=== PATIENT | female | born 1950 | race Caucasian/White ===

== ENCOUNTER 2018-05-03 11:52 | Emergency (ER) | payer MEDICARE, OTHER ==
--- NOTE | 2018-05-03 12:27 | ED ---
Extremity Problem HPI - General Chief complaint: Extremity Problem,Nontraumatic Stated complaint: Hip pain Source: patient, RN notes reviewed, old records reviewed Mode of arrival: wheelchair Limitations: no limitations - History of Present Illness Initial comments: This is a 68-year-old female the ER with severe left hip pain. Patient denies injury or trauma causing the hip pain. Patient has no recent travel history no known sick contacts. Denies loss of bowel or bladder. Again denies trauma no rash. Patient does take Motrin at home for pain, occasional Tylenol. Those are not helping currently at this time. Patient states pain is been about a week progressively worsening with severe pain down to her knee. MD Complaint: extremity pain, joint pain -: week(s) Location: left, lower extremity History of Same: Yes -: Yes arthralgia Radiation: distal Severity scale (1-10): 7 Consistency: constant Improves with: nothing Worsens with: nothing Associated Symptoms: denies other symptoms - Related Data Home Medications Medication Instructions Recorded Confirmed ALPRAZolam [Xanax] 0.5 mg PO TID PRN 05/03/18 05/03/18 Butalb/Acetaminophen/Caffeine 1 tab PO Q6H PRN 05/03/18 05/03/18 [Fioricet 50-325-40] Hydroxychloroquine Sulfate 200 mg PO BID 05/03/18 05/03/18 [Plaquenil] Ibuprofen 800 mg PO BID PRN 05/03/18 05/03/18 Omeprazole 20 mg PO DAILY 05/03/18 05/03/18 predniSONE 2.5 mg PO DAILY 05/03/18 05/03/18 Previous Rx's Medication Instructions Recorded Naproxen [Naprosyn] 500 mg PO Q12HR PRN #30 tab 05/03/18 Allergies Allergy/AdvReac Type Severity Reaction Status Date / Time codeine Allergy Anaphylaxis Verified 05/03/18 12:33 hydrocodone [From [place]] Allergy Anaphylaxis Verified 05/03/18 12:33 hydromorphone [From Dilaudid] Allergy Anaphylaxis Verified 05/03/18 12:33 morphine Allergy Anaphylaxis Verified 05/03/18 12:33 Review of Systems ROS Statement: Those systems with pertinent positive or pertinent negative responses have been documented in the HPI. ROS Other: All systems not noted in ROS Statement are negative. Past Medical History Past Medical History: Rheumatoid Arthritis (RA) History of Any Multi-Drug Resistant Organisms: None Reported Past Surgical History: Cholecystectomy, Hysterectomy, Orthopedic Surgery Additional Past Surgical History / Comment(s): right hip replaced Past Psychological History: No Psychological Hx Reported Smoking Status: Current every day smoker Past Alcohol Use History: None Reported Past Drug Use History: None Reported General Exam - General Exam Comments Initial Comments: No neurological deficit found, straight leg raising is negative Limitations: no limitations General appearance: alert, in no apparent distress Head exam: Present: atraumatic, normocephalic, normal inspection Eye exam: Present: normal appearance, PERRL, EOMI. Absent: scleral icterus, conjunctival injection, periorbital swelling ENT exam: Present: normal exam, mucous membranes moist Neck exam: Present: normal inspection. Absent: tenderness, meningismus, lymphadenopathy Respiratory exam: Present: normal lung sounds bilaterally. Absent: respiratory distress, wheezes, rales, rhonchi, stridor Cardiovascular Exam: Present: regular rate, normal rhythm, normal heart sounds. Absent: systolic murmur, diastolic murmur, rubs, gallop, clicks GI/Abdominal exam: Present: soft, normal bowel sounds. Absent: distended, tenderness, guarding, rebound, rigid Extremities exam: Present: normal inspection, full ROM, normal capillary refill. Absent: tenderness, pedal edema, joint swelling, calf tenderness Back exam: Present: normal inspection Neurological exam: Present: alert, oriented X3, CN II-XII intact Psychiatric exam: Present: normal affect, normal mood Skin exam: Present: warm, dry, intact, normal color. Absent: rash Course Vital Signs 05/03/18 12:12 Temperature 97.9 F Pulse Rate 67 Respiratory 16 Rate Blood Pressure 156/83 O2 Sat by Pulse 98 Oximetry - Reevaluation(s) Reevaluation #1: 05/03/18 14:41 Medical record is reviewed Reevaluation #2: 05/03/18 14:41 Patient has improved symptoms mildly able to ambulate Medical Decision Making - Medical Decision Making 68 female the ER with significant left hip pain left back pain. Radiation down left leg, CT does show degenerative disc disease but no acute disease. Patient will follow-up with outpatient orthopedics - Radiology Data Radiology results: report reviewed (X-ray left hip, CT left hip and lumbosacral spine shows degenerative disc disease no acute disease), image reviewed Disposition Clinical Impression: Right hip pain Disposition: HOME SELF-CARE Condition: Good Instructions: Osteoarthritis (ED) Prescriptions: Naproxen [Naprosyn] 500 mg PO Q12HR PRN #30 tab PRN Reason: Pain Is patient prescribed a controlled substance at d/c from ED?: No Referrals: Javi Barros DO [Primary Care Provider] - 1-2 days
[2018-05-03] MEDS ORDERED: KETOROLAC 60 MG/2 ML VIAL IM STA (12:28)
[2018-05-03] MEDS ORDERED: traMADol 50 MG STARTER PACK 3 TAB BTL PO STA (12:28)
[2018-05-03] MEDS ORDERED: traMADol 50 MG TAB PO STA (12:28)
--- NOTE | 2018-05-03 13:07 | XR ---
EXAMINATION TYPE: XR Hip Complete LT DATE OF EXAM: 05/03/2018 CLINICAL HISTORY: pain TECHNIQUE: AP and frogleg views of the left hip are obtained. COMPARISON: None. FINDINGS: There is no acute fracture/dislocation evident. Total right hip is in place. The overlying soft tissue appears unremarkable. IMPRESSION: 1. There is no acute fracture or dislocation. ICD 10 NO FRACTURE, INITIAL EVALUATION
[2018-05-03] MEDS ORDERED: DEXAMETHASONE 4 MG TAB PO STA (14:23)
[2018-05-03] MEDS ORDERED: RX INFO: IV CONTRAST WAS GIVEN 1 EACH MISC MISCELLANE PRN (14:23)
--- NOTE | 2018-05-03 15:13 | CT ---
EXAMINATION TYPE: CT lumbar spine wo con DATE OF EXAM: 05/03/2018 COMPARISON: None HISTORY: Left hip pain today, no known injury. CT DLP: [address] of the lumbar spine was performed. Bone and soft tissue window settings are submitted as well as coronal and sagittal reconstructions. L1-L2: Normal disc space height. No disc herniation protrusion or central stenosis. No facet joint arthropathy. No evidence for foraminal encroachment. L2-L3: Severe disc desiccation vacuum disc noted. Grade 1 retrolisthesis of L2 on L3 measuring 3.8 mm . Posterior disc bulge without musa disc herniation or protrusion. No evidence for central stenosis. Facet joint arthropathy resulting in moderate bilateral foraminal encroachment left greater than rig ht. L3-L4: Moderate disc space narrowing. Circumferential disc bulge with mild effacement ventral thecal sac. Possible bilateral lateral recess stenosis. Correlate clinically. No evidence for central stenos is. Facet joint arthropathy. No foraminal encroachment. L4-L5: Vacuum disc compatible with severe disc desiccation. Moderate circumferential disc bulge great est posteriorly with bilateral lateral recess stenosis. No definite herniation or central stenosis. B ilateral foraminal encroachment with facet joint arthropathy. L5-S1: Vacuum disc compatible with severe disc desiccation. Posterior disc bulge with encapsulating spur resulting in hard disc. Mild effacement ventral thecal sac. No evidence for central stenosis. B ilateral foraminal encroachment noted. No paraspinal masses are identified. Lumbar segments are free if fracture. IMPRESSION: 1. Severe multilevel degenerative disc disease with varying degrees of disc bulging and lateral reces s stenosis and foraminal encroachment as discussed above. 2. No compression fractures identified.
--- NOTE | 2018-05-03 15:23 | CT ---
EXAMINATION TYPE: CT pelvis wo con, CT hip LT wo con DATE OF EXAM: 05/03/2018 COMPARISON: Plain films from the same day HISTORY: Left hip pain today, no known injury. CT DLP: 846 mGycm Automated exposure control for dose reduction was used. Bone and soft tissue window settings are subm itted. CT was performed of the pelvis and left hip. Axial sagittal and coronal images are reviewed. FINDINGS: There is no displaced or impacted fracture of the pelvis or left hip. Left hip joint space is well-pr eserved. Right total hip prosthesis is well seated. No soft tissue masses present. No pelvic masses s een. IMPRESSION: NO EVIDENCE FOR A DISPLACED OR IMPACTED FRACTURE AT THIS TIME.
[2018-05-03 15:59] VITALS: BP 174/77; PULSE 63; RESP 18; TEMP 98.1
== END 2018-05-03 15:48 | disposition home or self-care (01) ==
LOC: EC 11:52
DX: M25.552 Pain in left hip (principal); M51.37 Other intervertebral disc degeneration, lumbosacral region; M06.9 Rheumatoid arthritis, unspecified; F17.200 Nicotine dependence, unspecified, uncomplicated; Z79.52 Long term (current) use of systemic steroids; Z79.899 Other long term (current) drug therapy; Z88.5 Allergy status to narcotic agent; Z96.641 Presence of right artificial hip joint
CPT/HCPCS: 73502; 72192; 72131; 73700; 99284; 96372; J8540; J1885

== ENCOUNTER → 2018-05-03 | Outpatient (CLI) | payer MEDICARE, OTHER ==
--- NOTE | 2018-05-03 11:57 | XR ---
EXAMINATION TYPE: XR lumbar spine 2 or 3V DATE OF EXAM: 05/03/2018 CLINICAL HISTORY: pain TECHNIQUE: Three views of the lumbar spine are submitted. COMPARISON: None. FINDINGS: There are 5 lumbar type vertebral bodies identified. The lumbar spine shows satisfactory alignment w ithout evidence of acute fracture or dislocation. Vertebral body heights are within normal limits. Severe degenerative disc space narrowing at L2-3 and L5-S1 with vacuum disc. Endplate sclerosis and v entral spondylosis noted. Severe facet joint arthropathy. The overlying soft tissue appears unremark able. IMPRESSION: No acute fracture or dislocation is seen in the lumbar spine. ICD 10 NO FRACTURE, INITIAL EVALUATION
--- NOTE | 2018-05-03 11:59 | XR ---
EXAMINATION TYPE: XR pelvis AP view DATE OF EXAM: 05/03/2018 CLINICAL HISTORY: pain TECHNIQUE: Single view the pelvis is submitted. FINDINGS: No evidence for fracture, dislocation or bony lesion. Total right hip arthroplasty is in p lace. Left hip joint space is well-preserved. SI joints appear symmetric. IMPRESSION: 1. No acute fracture or dislocation seen. ICD 10 NO FRACTURE, INITIAL EVALUATION
--- NOTE | 2018-05-03 12:01 | XR ---
EXAMINATION TYPE: XR cervical spine limited DATE OF EXAM: 05/03/2018 CLINICAL HISTORY: pain TECHNIQUE: 3 views of the cervical spine are submitted. COMPARISON: None. FINDINGS: Moderate to severe degenerative narrowing noted at C5-6 and C6-7. [id number] narrowin g at C4-5. Ventral and dorsal spondylosis identified. Grade 1 anterolisthesis of C4 on C5 measuring 2 mm. No evidence for compression fracture. IMPRESSION: 1. Degenerative changes as discussed above.
== END | disposition home or self-care (01) ==
LOC: RADXRMAIN 11:19
PROVIDERS: ATTEND Chiropractor
DX: M99.71 Connective tissue and disc stenosis of intervertebral foramina of cervical region (principal); M47.812 Spondylosis without myelopathy or radiculopathy, cervical region; M43.12 Spondylolisthesis, cervical region; M99.03 Segmental and somatic dysfunction of lumbar region; M99.01 Segmental and somatic dysfunction of cervical region
CPT/HCPCS: 72040; 72100; 72170

== ENCOUNTER → 2019-07-04 | Outpatient (CLI) | payer MEDICARE, OTHER ==
--- NOTE | 2019-07-04 13:02 | CT ---
EXAMINATION TYPE: CT foot RT wo con DATE OF EXAM: 07/04/2019 COMPARISON: None HISTORY: 69-year-old female with right foot pain after fall 2.5 weeks ago. TECHNIQUE: Contiguous axial scanning of the right foot without IV contrast. Coronal and sagittal kervin nstructions performed. 3-D reconstructions generated on a dedicated independent workstation. CT DLP: 229.2 mGycm Automated exposure control for dose reduction was used. FINDINGS: Type II accessory navicular. Multipartite os peroneum. Old healed fracture deformity fifth metatarsal shaft. Lateral sided soft tissue swelling with minimal irregularity at the tip of the lateral malleolus. Subtalar joint is aligned. Smooth delineation to the Achilles tendon. Otherwise, no acute fracture, subluxation, or dislocation is seen. IMPRESSION: 1. SOME LATERAL MALLEOLAR SOFT TISSUE SWELLING. SLIGHT BONY IRREGULARITY AT THE INFERIOR TIP OF THE L ATERAL MALLEOLUS COULD REPRESENT A TINY NONDISPLACED FRACTURE. CORRELATE FOR ANY PINPOINT TENDERNESS HERE. 2. OLD HEALED FRACTURE DEFORMITY FIFTH METATARSAL SHAFT. NO ADDITIONAL ACUTE OSSEOUS ABNORMALITY SEEN .
== END | disposition home or self-care (01) ==
LOC: RADCTMAIN 11:33
PROVIDERS: ATTEND Orthopaedic Surgery
DX: M79.89 Other specified soft tissue disorders (principal); M89.8X6 Other specified disorders of bone, lower leg; M06.9 Rheumatoid arthritis, unspecified; E55.9 Vitamin D deficiency, unspecified; S92.311A Displaced fracture of first metatarsal bone, right foot, initial encounter for closed fracture
CPT/HCPCS: 36415; 82306

== ENCOUNTER 2019-07-18 11:08 | Observation (INO) | payer MEDICARE, OTHER ==
--- NOTE | 2019-07-18 12:13 | ED ---
General Adult HPI - General Chief complaint: Arrhythmia/Palpitations Stated complaint: LARON/palpitations Time Seen by Provider: 07/18/19 11:10 Source: patient, RN notes reviewed, old records reviewed Mode of arrival: ambulatory Limitations: no limitations - History of Present Illness Initial comments: This is a 69-year-old female presents emergency Department who states that she was having palpitations and some heaviness on her chest for the last week. Patient states that she's coming to the emergency department the palpitations. Shortness of breath which she was also having has stopped and she does not feel any heaviness. Patient denies any diabetes high blood pressure high cholesterol. Patient states that her blood pressure has been high over this past week but prior to that it never was a she's on any medications for. Patient states she's had no swelling to legs or calf tenderness. Patient denies any abdominal pain. Patient denies any cough fever chills. Patient denies any lightheadedness dizziness. Patient has a headache patient denies numbness weakness. - Related Data Home Medications Medication Instructions Recorded Confirmed ALPRAZolam [Xanax] 0.5 mg PO TID PRN 05/03/18 05/03/18 Butalb/Acetaminophen/Caffeine 1 tab PO Q6H PRN 05/03/18 05/03/18 [Fioricet 50-325-40] Hydroxychloroquine Sulfate 200 mg PO BID 05/03/18 05/03/18 [Plaquenil] Ibuprofen 800 mg PO BID PRN 05/03/18 05/03/18 Omeprazole 20 mg PO DAILY 05/03/18 05/03/18 predniSONE 2.5 mg PO DAILY 05/03/18 05/03/18 Previous Rx's Medication Instructions Recorded Naproxen [Naprosyn] 500 mg PO Q12HR PRN #30 tab 05/03/18 Allergies Allergy/AdvReac Type Severity Reaction Status Date / Time codeine Allergy Anaphylaxis Verified 05/03/18 12:33 hydrocodone [From [place]] Allergy Anaphylaxis Verified 05/03/18 12:33 hydromorphone [From Dilaudid] Allergy Anaphylaxis Verified 05/03/18 12:33 morphine Allergy Anaphylaxis Verified 05/03/18 12:33 tramadol Allergy Itching Verified 07/18/19 11:14 Review of Systems ROS Statement: Those systems with pertinent positive or pertinent negative responses have been documented in the HPI. ROS Other: All systems not noted in ROS Statement are negative. Past Medical History Past Medical History: Rheumatoid Arthritis (RA) History of Any Multi-Drug Resistant Organisms: None Reported Past Surgical History: Cholecystectomy, Hysterectomy, Orthopedic Surgery Additional Past Surgical History / Comment(s): right hip replaced Past Psychological History: No Psychological Hx Reported Smoking Status: Former smoker Past Alcohol Use History: None Reported Past Drug Use History: None Reported General Exam - General Exam Comments Initial Comments: GENERAL: Patient is well-developed and well-nourished. Patient is nontoxic and well- hydrated and is in no acute distress. ENT: Neck is soft and supple. No significant lymphadenopathy is noted. Oropharynx is clear. Moist mucous membranes. Neck has full range of motion without eliciting any pain. EYES: The sclera were anicteric and conjunctiva were pink and moist. Extraocular movements were intact and pupils were equal round and reactive to light. Eyelids were unremarkable. PULMONARY: Unlabored respirations. Good breath sounds bilaterally. No audible rales rhonchi or wheezing was noted. CARDIOVASCULAR: There is a regular rate and rhythm without any murmurs gallops or rubs. ABDOMEN: Soft and nontender with normal bowel sounds. SKIN: Skin is clear with no lesions or rashes and otherwise unremarkable. NEUROLOGIC: Patient is alert and oriented x3. Cranial nerves II through XII are grossly intact. Motor and sensory are also intact. Normal speech, volume and content. Symmetrical smile. MUSCULOSKELETAL: Normal extremities with adequate strength and full range of motion. No lower extremity swelling or edema. No calf tenderness. LYMPHATICS: No significant lymphadenopathy is noted PSYCHIATRIC: Normal psychiatric evaluation. Limitations: no limitations Course Vital Signs 07/18/19 07/18/19 07/18/19 11:11 11:30 12:00 Temperature 98.5 F Pulse Rate 94 73 70 Respiratory 18 14 21 Rate Blood Pressure 189/69 152/80 160/84 O2 Sat by Pulse 98 97 98 Oximetry 07/18/19 12:30 Temperature Pulse Rate 61 Respiratory 21 Rate Blood Pressure 155/74 O2 Sat by Pulse 98 Oximetry Medical Decision Making - Medical Decision Making Patient stated that she was pain-free so I got her up and walk down the hallway and again she stated that sensation in her chest came back and she was hooked up to the monitor and there was no arrhythmia or PVCs or PACs noted but she was still having that weird sensation in the left side of her chest. EKG shows normal sinus rhythm at 82 bpm MS interval 150 QRS is 72 QT interval 412 QTC is 481. Patient's EKG shows no ST segment elevation or depression. Chest x-ray shows no acute abnormality. I spoke with Dr. Christianson agreed to admit the patient admitted the patient wrote admitting orders. I counseled cardiology. - Lab Data Result diagrams: 07/18/19 11:24 07/18/19 11:24 Lab Results 07/18/19 07/18/19 07/18/19 Range/Units 11:24 11:24 11:24 WBC 7.1 (3.8-10.6) k/uL RBC 4.29 (3.80-5.40) m/uL Hgb 12.9 (11.4-16.0) gm/dL Hct 40.0 (34.0-46.0) % MCV 93.3 (80.0-100.0) fL MCH 30.0 (25.0-35.0) pg MCHC 32.2 (31.0-37.0) g/dL RDW 12.9 (11.5-15.5) % Plt Count 231 (150-450) k/uL Neutrophils % 53 % Lymphocytes % 32 % Monocytes % 6 % Eosinophils % 4 % Basophils % 2 % Neutrophils # 3.8 (1.3-7.7) k/uL Lymphocytes # 2.2 (1.0-4.8) k/uL Monocytes # 0.4 (0-1.0) k/uL Eosinophils # 0.3 (0-0.7) k/uL Basophils # 0.2 (0-0.2) k/uL PT 10.1 (9.0-12.0) sec INR 1.0 (<1.2) APTT 28.2 (22.0-30.0) sec Sodium 140 (137-145) mmol/L Potassium 3.9 (3.5-5.1) mmol/L Chloride 112 H (98-107) mmol/L Carbon Dioxide 19 L (22-30) mmol/L Anion Gap 9 mmol/L BUN 17 (7-17) mg/dL Creatinine 0.92 (0.52-1.04) mg/dL Est GFR (CKD-EPI)AfAm 75 (>60 ml/min/1.73 sqM) Est GFR (CKD-EPI)NonAf 65 (>60 ml/min/1.73 sqM) Glucose 106 H (74-99) mg/dL Calcium 9.0 (8.4-10.2) mg/dL Magnesium 1.8 (1.6-2.3) mg/dL Total Bilirubin 0.5 (0.2-1.3) mg/dL AST 28 (14-36) U/L ALT 17 (4-34) U/L Alkaline Phosphatase 104 (38-126) U/L Troponin I (0.000-0.034) ng/mL Total Protein 7.7 (6.3-8.2) g/dL Albumin 3.9 (3.5-5.0) g/dL TSH 2.590 (0.465-4.680) mIU/L 07/18/19 Range/Units 11:24 WBC (3.8-10.6) k/uL RBC (3.80-5.40) m/uL Hgb (11.4-16.0) gm/dL Hct (34.0-46.0) % MCV (80.0-100.0) fL MCH (25.0-35.0) pg MCHC (31.0-37.0) g/dL RDW (11.5-15.5) % Plt Count (150-450) k/uL Neutrophils % % Lymphocytes % % Monocytes % % Eosinophils % % Basophils % % Neutrophils # (1.3-7.7) k/uL Lymphocytes # (1.0-4.8) k/uL Monocytes # (0-1.0) k/uL Eosinophils # (0-0.7) k/uL Basophils # (0-0.2) k/uL PT (9.0-12.0) sec INR (<1.2) APTT (22.0-30.0) sec Sodium (137-145) mmol/L Potassium (3.5-5.1) mmol/L Chloride (98-107) mmol/L Carbon Dioxide (22-30) mmol/L Anion Gap mmol/L BUN (7-17) mg/dL Creatinine (0.52-1.04) mg/dL Est GFR (CKD-EPI)AfAm (>60 ml/min/1.73 sqM) Est GFR (CKD-EPI)NonAf (>60 ml/min/1.73 sqM) Glucose (74-99) mg/dL Calcium (8.4-10.2) mg/dL Magnesium (1.6-2.3) mg/dL Total Bilirubin (0.2-1.3) mg/dL AST (14-36) U/L ALT (4-34) U/L Alkaline Phosphatase (38-126) U/L Troponin I <0.012 (0.000-0.034) ng/mL Total Protein (6.3-8.2) g/dL Albumin (3.5-5.0) g/dL TSH (0.465-4.680) mIU/L Disposition Clinical Impression: Chest pain Disposition: ADMITTED IP TO THIS HOSP Referrals: Javi Barros DO [Primary Care Provider] - 1-2 days Time of Disposition: 13:19
[2019-07-18 12:17] LABS: Basophils # (A) 0.2 k/uL (0-0.2); Basophils % (A) 2 %; Eosinophils # (A) 0.3 k/uL (0-0.7); Eosinophils % (A) 4 %; HGB 12.9 gm/dL (11.4-16.0); Lymphocytes # (A) 2.2 k/uL (1.0-4.8); Lymphocytes % (A) 32 %; MCHC 32.2 g/dL (31.0-37.0); MCV 93.3 fL (80.0-100.0); Mean Platelet Volume 9.4; Monocytes # (A) 0.4 k/uL (0-1.0); Monocytes % (A) 6 %; Neutrophils # (A) 3.8 k/uL (1.3-7.7); Neutrophils % (A) 53 %; Platelet Count 231 k/uL (150-450); RBC 4.29 m/uL (3.80-5.40); RDW 12.9 % (11.5-15.5); WBC 7.1 k/uL (3.8-10.6)
[2019-07-18 12:21] LABS: Partial Thromboplastin Time 28.2 sec (22.0-30.0); Prothrombin Time 10.1 sec (9.0-12.0)
[2019-07-18 12:25] LABS: Albumin 3.9 g/dL (3.5-5.0); Magnesium 1.8 mg/dL (1.6-2.3); Potassium 3.9 mmol/L (3.5-5.1); Total Bilirubin 0.5 mg/dL (0.2-1.3); Total Protein 7.7 g/dL (6.3-8.2)
--- NOTE | 2019-07-18 12:47 | XR ---
EXAMINATION TYPE: XR chest 2V DATE OF EXAM: 07/18/2019 COMPARISON: 02/12/2012 HISTORY: Shortness of breath TECHNIQUE: Frontal and lateral views of the chest are obtained. FINDINGS: Scattered senescent parenchymal changes noted. Hyperinflation compatible with COPD. No evidence for infiltrate. No evidence for atelectasis. Heart size is stable. Mediastinal structures are stable and grossly unremarkable. No evidence for hilar prominence. Degenerative changes dorsal spine. IMPRESSION: 1. No evidence for acute pulmonary disease.
[2019-07-18] MEDS ORDERED: NITROGLYCERIN SL TABS 0.4 MG TAB SUBLINGUAL PRN (13:20)
[2019-07-18] MEDS ORDERED: BACLOFEN 10 MG TAB PO PRN (14:26)
--- NOTE | 2019-07-18 14:27 | P.HPIM ---
History of Present Illness H&P Date: 07/18/19 The patient is a 69-year-old female with a PMH of rheumatoid arthritis, tobacco abuse (quit 1 month ago) and osteoarthritis who presented to the ED with complaints of substernal chest discomfort and associated palpitations. Patient reports that her symptoms started roughly a week ago when she suddenly developed this substernal chest tightness, constant, worsened with chest wall movement along with exertion, with associated palpitations, unable to quantify, and nonradiating. She reported that the discomfort improved somewhat after she received nitroglycerin in the emergency room. She denied associated shortness of breath, diaphoresis, nausea, vomiting, or dizziness. She never had such sym ptoms the past. She denied heart-burn, fever, chills, abdominal pain, diarrhea, or cough. She denied tenderness of her chest wall, recent heavy lifting, or increased amount of stress in her life. The patient underwent an extensive outpatient emergency room with EKG showing a normal sinus rhythm at [address]/T-wave changes noted. Chest x-ray revealed no acute abnormalities. Laboratory evaluation revealed a troponin of less than 0.012, WBC count of 7.1, hemoglobin 12.9, platelets 231, sodium 140, potassium 3.9, BUN 17, creatinine 0.92. The patient is being admitted to the medicine service for further management of chest pain. Review of Systems Pertinent positives and negatives as discussed in HPI, a complete review of systems was performed and all other systems are negative. Past Medical History Past Medical History: Rheumatoid Arthritis (RA) History of Any Multi-Drug Resistant Organisms: None Reported Past Surgical History: Cholecystectomy, Hysterectomy, Orthopedic Surgery Additional Past Surgical History / Comment(s): right hip replaced Past Psychological History: No Psychological Hx Reported Smoking Status: Former smoker Past Alcohol Use History: None Reported Past Drug Use History: None Reported - Past Family History Mother Family Medical History: Osteoarthritis (OA), Rheumatoid Arthritis (RA) Father History Unknown: Yes Additional Family Medical History / Comment(s): not present Medications and Allergies Home Medications Medication Instructions Recorded Confirmed Type ALPRAZolam [Xanax] 0.5 mg PO TID PRN 05/03/18 07/18/19 History Butalb/Acetaminophen/Caffeine 1 tab PO Q6H PRN 05/03/18 07/18/19 History [Fioricet 50-325-40] Hydroxychloroquine Sulfate 200 mg PO DAILY 05/03/18 07/18/19 History [Plaquenil] Ibuprofen 800 mg PO Q8H PRN 05/03/18 07/18/19 History Omeprazole 20 mg PO DAILY 05/03/18 07/18/19 History Alendronate Sodium [Fosamax] 70 mg PO WE 07/18/19 07/18/19 History Baclofen [Lioresal] 10 mg PO DAILY PRN 07/18/19 07/18/19 History Cetirizine HCl [Zyrtec] 10 mg PO DAILY 07/18/19 07/18/19 History Etanercept [Enbrel] 50 mg SQ MO 07/18/19 07/18/19 History Fluocinolone Acetonide Oil 4 drops BOTH EARS BID PRN 07/18/19 07/18/19 History [Fluocinolone Acetonide Oil (Otic)] Furosemide [Lasix] 20 mg PO DAILY 07/18/19 07/18/19 History Leflunomide 20 mg PO DAILY 07/18/19 07/18/19 History Pilocarpine [Salagen] 5 mg PO DAILY 07/18/19 07/18/19 History Polyethylene Glycol 3350 [Miralax] 17 gm PO DAILY PRN 07/18/19 07/18/19 History Varenicline Tartrate [Chantix 1 mg PO BID 07/18/19 07/18/19 History Continuing Pack] diphenhydrAMINE [Benadryl] 25 mg PO DAILY 07/18/19 07/18/19 History Allergies Allergy/AdvReac Type Severity Reaction Status Date / Time codeine Allergy Anaphylaxis Verified 07/18/19 14:09 hydrocodone [From [place]] Allergy Anaphylaxis Verified 07/18/19 14:09 hydromorphone [From Dilaudid] Allergy Anaphylaxis Verified 07/18/19 14:09 morphine Allergy Anaphylaxis Verified 07/18/19 14:09 tramadol Allergy Itching Verified 07/18/19 14:09 Physical Exam Vitals: Vital Signs Temp Pulse Resp BP Pulse Ox 07/18/19 12:30 61 21 155/74 98 07/18/19 12:00 70 21 160/84 98 07/18/19 11:30 73 14 152/80 97 07/18/19 11:11 98.5 F 94 18 189/69 98 Intake and Output 07/17/19 07/18/19 07/18/19 22:59 06:59 14:59 Other: Weight 71.214 kg General: non toxic, no distress, appears at stated age, normal weight Derm: no unusual rashes/lesions no unusual ecchymoses, warm, dry Head: atraumatic, normocephalic, symmetric Eyes: EOMI, no lid lag, anicteric sclera, pupils equal round reactive to light ENT: Nose and ears atraumatic, no thrush, no pharyngeal erythema Neck: No thyromegaly, no cervical lymphadenopathy, trachea midline, supple Mouth: no lip lesion, mucus membranes moist Cardiovascular: S1S2 reg, no murmur, positive posterior tibial pulse bilateral, no edema, capillary refill less than 2 seconds Lungs: CTA bilateral, no rhonchi, no rales , no accessory muscle use Abdominal: soft, nontender to palpation, no guarding, no appreciable organomegaly, normal bowel sounds Ext: no gross muscle atrophy, muscle strength 5 out of 5 in all 4 extremities grossly, no contractures, Neuro: CN II-XI grossly intact, light touch intact all 4 extremities, finger to nose within normal limits, Psych: Alert, oriented, appropriate affect Results CBC & Chem 7: 07/18/19 11:24 07/18/19 11:24 Labs: Abnormal Lab Results - Last 24 Hours (Table) 07/18/19 Range/Units 11:24 Chloride 112 H (98-107) mmol/L Carbon Dioxide 19 L (22-30) mmol/L Glucose 106 H (74-99) mg/dL Assessment and Plan Plan: Chest pain -Cardiology evaluation -Cardiac monitoring -Trend troponin and EKG -Continue with aspirin and nitroglycerin when necessary Elevated BP, without diagnoses of HTN -Will start patient on single agent for now Chronic conditions: Rheumatoid arthritis, osteoarthritis -Continue with home meds DVT prophylaxis -Heparin The patient is admitted with an anticipated less than 2 midnight stay for e valuation of chest pain CODE STATUS: Full Code Discussed with: Patient Anticipated discharge date: 1-[address]: Home A total of 40 minutes was spent on the care of this complex patient more than 50% of the time was spent in counseling and care coordination.
[2019-07-18] MEDS: NITROGLYCERIN OINT 1 INCH/GM PACKET TOPICAL SCH ×2 (18:01→23:41)
[2019-07-18] MEDS: HEPARIN SODIUM,PORCINE 5,000 UNIT/ML 1 ML VIAL SQ SCH ×2 (18:02→23:37)
[2019-07-18] MEDS: ALPRAZolam 0.5 MG TAB PO PRN ×2 (18:14→23:38)
[2019-07-18] MEDS ORDERED: POLYETHYLENE GLYCOL 3350 17 GM POWD.PACK PO PRN (18:41)
[2019-07-18] MEDS: BUTALB/APAP/CAFF 50-325-40MG TAB PO PRN (22:42)
[2019-07-19] MEDS: PANTOPRAZOLE 40 MG TABLET PO SCH (06:25)
[2019-07-19] MEDS: NITROGLYCERIN OINT 1 INCH/GM PACKET TOPICAL SCH ×4 (06:26→23:10)
[2019-07-19 06:31] LABS: Cholesterol 153 mg/dL (<200); HDL Cholesterol 59 mg/dL (40-60); LDL Cholesterol,Calculated 78 mg/dL (0-99); Triglycerides 82 mg/dL (<150)
[2019-07-19] MEDS: LEFLUNOMIDE 20 MG TAB PO SCH (07:42)
[2019-07-19] MEDS: LORATADINE 10 MG TAB PO SCH (07:42)
[2019-07-19] MEDS: PILOCARPINE 5 MG TAB PO SCH (07:42)
[2019-07-19] MEDS: HEPARIN SODIUM,PORCINE 5,000 UNIT/ML 1 ML VIAL SQ SCH ×3 (07:42→23:10)
[2019-07-19] MEDS: HYDROXYCHLOROQUINE SULFATE 200 MG TAB PO SCH (07:43)
[2019-07-19] MEDS: FUROSEMIDE 20 MG TAB PO SCH (07:43)
[2019-07-19] MEDS: diphenhydrAMINE 25 MG CAP PO SCH (07:43)
[2019-07-19] MEDS: amLODIPine 10 MG TAB PO SCH (08:50)
[2019-07-19] MEDS ORDERED: ACETAMINOPHEN TAB 325 MG TAB PO PRN (08:57)
[2019-07-19] MEDS ORDERED: ASPIRIN 325 MG TAB PO SCH (09:00)
[2019-07-19] MEDS: BUTALB/APAP/CAFF 50-325-40MG TAB PO PRN ×3 (10:30→23:13)
--- NOTE | 2019-07-19 15:27 | P.CRDCN ---
History of Present Illness History of present illness: This is Mildred Valdes PA-C dictating a consult on this patient The patient was interviewed and examined by me as well as by Dr. Sun Case discussed with Dr. Sun and he agrees with the plan of care IMPRESSION / ASSESSMENT: Atypical chest discomfort associated with fluttering in her chest, troponins negative 3, no acute changes on EKG Hypertension, blood pressure control improving progressive dyspnea on exertion for the last week Previous echo showing moderate AR and possible bicuspid aortic valve Former smoker, [id number] history, quit one year ago Dyslipidemia, ASCVD ten-year risk score 8.3% PLAN: Obtain 2-D echo and Doppler study to assess cardiac structure and function Agree with starting amlodipine, continue monitoring blood pressure check hemoglobin A1C for risk factor stratefication Start atorvastatin 20 mg daily HPI Patient is a 69-year-old female with a past medical history of rheumatoid arthritis who presented with complaints of chest discomfort and palpitations. 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 Patient states her symp toms started with a headache. She states she gets frequent headaches but this one was worse than she has ever experienced. She then felt a fluttering in her chest with associated dizziness. No syncope. She also notes that for the last week she has been more short of breath on exertion. Denies chest pain on exertion. She checked her blood pressure at home and it was elevated and this was a new finding for her. She has no known diagnosis of hypertension. She presented to the emergency department for further evaluation. Upon arrival her blood pressure was 189/69, pulse was 94, oxygen saturation was 98%. Chest x-ray shows no acute process. EKG shows sinus rhythm with early repolarization abnormality in the inferior leads, no acute ST or T-wave changes. Cardiac enzymes have been negative. She has been started on amlodipine and her blood pressure has improved. Patient seen and examined resting comfortably in bed. It continues to have intermittent fluttering in her chest. She states that when she gets up to use the bathroom she continues to have shortness of breath on exertion. No dizziness or syncope. She denies history of hypertension or diabetes She is a former smoker, smoked one pack a day for 50 years, quit one year ago Denies alcohol ROS: No fevers, chills or rigors, no cough, phlegm or expectoration, no nausea, vomiting, positive for diarrhea, no hematuria, dysuria, no musculoskeletal complaints, no strokes or seizures, no skin lesions. EXAMINATION: Patient is afebrile, pulse in the 70s, respirations 20, blood pressure in the 130s over 60s, Patient seen and examined resting in bed, in no acute distress Lungs mildly diminished at the bases Heart is regular, soft systolic murmur audible No elevated JVD No lower extremity edema REVIEW OF LABS, ECG & MEDICAL DATA WBC 7.1, hemoglobin 12.9, platelets 231, potassium 3.9, BUN 17, creatinine 0.93 LDL 78 TSH within normal limits Troponin negative 3 Echocardiogram in 2013 showed EF 55-60%, moderate aortic regurgitation, cannot exclude possible bicuspid aortic valve, mild MR Past Medical History Past Medical History: Rheumatoid Arthritis (RA) History of Any Multi-Drug Resistant Organisms: None Reported Past Surgical History: Cholecystectomy, Hysterectomy, Orthopedic Surgery Additional Past Surgical History / Comment(s): right hip replaced Past Anesthesia/Blood Transfusion Reactions: No Reported Reaction Past Psychological History: No Psychological Hx Reported Smoking Status: Former smoker Past Alcohol Use History: None Reported Past Drug Use History: None Reported - Past Family History Mother Family Medical History: Osteoarthritis (OA), Rheumatoid Arthritis (RA) Father History Unknown: Yes Additional Family Medical History / Comment(s): not present Medications and Allergies Home Medications Medication Instructions Recorded Confirmed Type ALPRAZolam [Xanax] 0.5 mg PO TID PRN 05/03/18 07/18/19 History Butalb/Acetaminophen/Caffeine 1 tab PO Q6H PRN 05/03/18 07/18/19 History [Fioricet 50-325-40] Hydroxychloroquine Sulfate 200 mg PO DAILY 05/03/18 07/18/19 History [Plaquenil] Ibuprofen 800 mg PO Q8H PRN 05/03/18 07/18/19 History Omeprazole 20 mg PO DAILY 05/03/18 07/18/19 History Alendronate Sodium [Fosamax] 70 mg PO WE 07/18/19 07/18/19 History Baclofen [Lioresal] 10 mg PO DAILY PRN 07/18/19 07/18/19 History Cetirizine HCl [Zyrtec] 10 mg PO DAILY 07/18/19 07/18/19 History Etanercept [Enbrel] 50 mg SQ MO 07/18/19 07/18/19 History Fluocinolone Acetonide Oil 4 drops BOTH EARS BID PRN 07/18/19 07/18/19 History [Fluocinolone Acetonide Oil (Otic)] Furosemide [Lasix] 20 mg PO DAILY 07/18/19 07/18/19 History Leflunomide 20 mg PO DAILY 07/18/19 07/18/19 History Pilocarpine [Salagen] 5 mg PO DAILY 07/18/19 07/18/19 History Polyethylene Glycol 3350 [Miralax] 17 gm PO DAILY PRN 07/18/19 07/18/19 History Varenicline Tartrate [Chantix 1 mg PO BID 07/18/19 07/18/19 History Continuing Pack] diphenhydrAMINE [Benadryl] 25 mg PO DAILY 07/18/19 07/18/19 History Allergies Allergy/AdvReac Type Severity Reaction Status Date / Time codeine Allergy Anaphylaxis Verified 07/18/19 14:09 hydrocodone [From [place]] Allergy Anaphylaxis Verified 07/18/19 14:09 hydromorphone [From Dilaudid] Allergy Anaphylaxis Verified 07/18/19 14:09 morphine Allergy Anaphylaxis Verified 07/18/19 14:09 tramadol Allergy Itching Verified 07/18/19 14:09 Physical Exam Vitals: Vital Signs Temp Pulse Resp BP Pulse Ox 07/19/19 12:00 70 20 165/77 97 07/19/19 10:56 78 144/78 07/19/19 10:49 72 20 132/63 96 07/19/19 10:47 132/63 07/19/19 10:45 70 154/68 07/19/19 07:55 97.4 F L 78 20 176/76 96 07/19/19 04:00 98.2 F 69 16 121/74 98 07/19/19 00:00 97.7 F 71 18 148/73 96 07/18/19 20:00 97.9 F 75 18 182/73 99 Intake and Output 07/19/19 07/19/19 07/19/19 06:59 14:59 22:59 Intake Total 240 120 Balance 240 120 Intake: Oral 240 120 Other: # Voids 2 Weight 72.1 kg Results 07/18/19 11:24 07/18/19 11:24 Cardiac Enzymes 07/18/19 07/18/19 Range/Units 18:02 23:31 Troponin I <0.012 <0.012 (0.000-0.034) ng/mL Lipids 07/19/19 Range/Units 05:55 Triglycerides 82 (<150) mg/dL Cholesterol 153 (<200) mg/dL HDL Cholesterol 59 (40-60) mg/dL Current Medications Generic Name Dose Route Start Last Admin Trade Name Freq PRN Reason Stop Dose Admin Acetaminophen 650 mg 07/19/19 08:57 Tylenol Tab PO Q4HR PRN Fever and/ or Mild Pain Acetaminophen/Butalbital/Caffeine 1 each 07/18/19 18:41 07/19/19 10:30 Fioricet 50-325-40 PO 1 each Q6H PRN Administration Headache Alprazolam 0.5 mg 07/18/19 14:26 07/18/19 23:38 Xanax PO 0.5 mg TID PRN Administration Anxiety Amlodipine Besylate 10 mg 07/19/19 09:00 07/19/19 08:50 Norvasc PO 10 mg DAILY [facility] Administration Aspirin 81 mg 07/20/19 09:00 Aspirin PO DAILY [facility] Atorvastatin Calcium 20 mg 07/19/19 21:00 Lipitor PO HS [facility] Baclofen 10 mg 07/18/19 14:26 Lioresal PO DAILY PRN Spasms Diphenhydramine HCl 25 mg 07/19/19 09:00 07/19/19 07:43 Benadryl PO 25 mg DAILY [facility] Administration Furosemide 20 mg 07/19/19 09:00 07/19/19 07:43 Lasix PO Not Given DAILY [facility] Heparin Sodium (Porcine) 5,000 unit 07/18/19 16:00 07/19/19 07:42 Heparin SQ 5,000 unit Q8HR [facility] Administration Hydroxychloroquine Sulfate 200 mg 07/19/19 09:00 07/19/19 07:43 Plaquenil PO 200 mg DAILY [facility] Administration Leflunomide 20 mg 07/19/19 09:00 07/19/19 07:42 Arava PO 20 mg DAILY [facility] Administration Loratadine 10 mg 07/19/19 09:00 07/19/19 07:42 Claritin PO 10 mg DAILY [facility] Administration Nitroglycerin 0.4 mg 07/18/19 13:20 07/19/19 10:45 Nitrostat SUBLINGUAL 0.4 mg Q5M PRN Administration Chest Pain Nitroglycerin 1 inch 07/18/19 18:00 07/19/19 11:27 Nitro-Bid Oint TOPICAL 1 inch Q6HR [facility] Administration Pantoprazole Sodium 40 mg 07/19/19 07:30 07/19/19 06:25 Protonix PO 40 mg [id number] [facility] Administration Pilocarpine HCl 5 mg 07/19/19 09:00 07/19/19 07:42 Salagen PO 5 mg DAILY [facility] Administration Polyethylene Glycol 17 gm 07/18/19 18:41 Miralax PO DAILY PRN Constipation Intake and Output 07/19/19 07/19/19 07/19/19 06:59 14:59 22:59 Intake Total 240 120 Balance 240 120 Intake: Oral 240 120 Other: # Voids 2 Weight 72.1 kg 07/18/19 11:24 07/18/19 11:24
--- NOTE | 2019-07-19 16:14 | P.PN ---
Subjective Progress Note Date: 07/19/19 The patient is a 69-year-old female with a PMH of rheumatoid arthritis, tobacco abuse (quit 1 month ago) and osteoarthritis who presented to the ED with complaints of substernal chest discomfort and associated palpitations. Patient reported that her symptoms started roughly a week prior when she suddenly developed this substernal chest tightness, constant, worsened with chest wall movement along with exertion, with associated palpitations, unable to quantify, and nonradiating. She reported that the discomfort improved somewhat after she received nitroglycerin in the emergency room. She denied associated shortness of breath, diaphoresis, nausea, vomiting, or dizziness. She never had such symptoms in the past. She denied heart-burn, fever, chills, abdominal pain, diarrhea, or cough. She denied tenderness of her chest wall, recent heavy lifting, or increased amount of stress in her life. The patient underwent an extensive evaluation in the emergency room with EKG showing a normal sinus rh ythm at [address]/T-wave changes noted. Chest x-ray revealed no acute abnormalities. Laboratory evaluation revealed a troponin of less than 0.012, WBC count of 7.1, hemoglobin 12.9, platelets 231, sodium 140, potassium 3.9, BUN 17, creatinine 0.92. The patient was admitted to the medicine service for further management of chest pain. Cardiology evaluated the patient and recommended obtaining an echocardiogram. Patient was seen and evaluated at the bedside on 07/19. She reported mild continued chest wall discomfort along with palpitations. She denied additional complaints. Denied SOB, nausea, vomiting, fever, chills, dizziness, or diaphoresis. Objective - Vital Signs Vital signs: Vital Signs Temp 97.4 F L 07/19/19 07:55 Pulse 70 07/19/19 12:00 Resp 20 07/19/19 12:00 BP 165/77 07/19/19 12:00 Pulse Ox 97 07/19/19 12:00 Intake & Output 07/18/19 07/19/19 07/19/19 18:59 06:59 18:59 Intake Total 240 480 120 Balance 240 480 120 Weight 71.214 kg 72.1 kg Intake: Oral 240 480 120 Other: # Voids 1 2 - Exam General: Non-toxic, in no acute distress, appears stated age, normal weight HEENT: NC/AT, anicteric sclerae, moist conjunctiva, no lid-lag, PERRLA Cardiovascular: S1/S2 wnl, no murmurs, rubs, or gallops Lungs: Clear to auscultation, normal respiratory effort, no accessory muscle use Abdominal: Soft, non-tender, non-distended, no guarding, rebound, or rigidity Skin: Warm, dry Extremities: No edema or contractures Psychiatric: Alert and oriented to person, place and time, appropriate affect Neuro: CN II-XII grossly intact, Strength 5/5 in all 4 extremities, Speech intact, Sensation to light touch grossly intact throughout - Labs CBC & Chem 7: 07/18/19 11:24 07/18/19 11:24 Assessment and Plan Plan: Chest pain -Cardiology conditions appreciated -Echocardiogram pending Elevated BP, without diagnoses of HTN -C/w Norvasc for now Chronic conditions: Rheumatoid arthritis, osteoarthritis -Continue with home meds DVT prophylaxis -Heparin CODE STATUS: Full Code Discussed with: Patient Anticipated discharge date: 1-[address]: Home
[2019-07-19] MEDS: ALPRAZolam 0.5 MG TAB PO PRN (20:35)
[2019-07-19] MEDS ORDERED: ATORVASTATIN 20 MG TAB PO SCH (21:00)
[2019-07-19 23:49] LABS: Hemoglobin A1C 5.2 % (4.0-6.0)
[2019-07-20] MEDS: PANTOPRAZOLE 40 MG TABLET PO SCH (06:33)
[2019-07-20] MEDS: NITROGLYCERIN OINT 1 INCH/GM PACKET TOPICAL SCH ×2 (06:33→10:33)
[2019-07-20] MEDS: PILOCARPINE 5 MG TAB PO SCH (08:09)
[2019-07-20] MEDS: amLODIPine 10 MG TAB PO SCH (08:09)
[2019-07-20] MEDS: LEFLUNOMIDE 20 MG TAB PO SCH (08:09)
[2019-07-20] MEDS: FUROSEMIDE 20 MG TAB PO SCH (08:09)
[2019-07-20] MEDS: HYDROXYCHLOROQUINE SULFATE 200 MG TAB PO SCH (08:09)
[2019-07-20] MEDS: LORATADINE 10 MG TAB PO SCH (08:09)
[2019-07-20] MEDS: diphenhydrAMINE 25 MG CAP PO SCH (08:09)
[2019-07-20] MEDS: HEPARIN SODIUM,PORCINE 5,000 UNIT/ML 1 ML VIAL SQ SCH (08:09)
[2019-07-20 08:20] VITALS: BP 154/70; PULSE 79; RESP 20; TEMP 97.4
[2019-07-20] MEDS ORDERED: ASPIRIN 81 MG PO SCH (09:00)
--- NOTE | 2019-07-20 09:57 | ECHOF ---
Referral Reason:sob MEASUREMENTS -------- HEIGHT: 154.9 cm WEIGHT: 71.7 kg BP: IVSd: 1.3 cm (0.6 - 1.1) LVIDd: 3.2 cm (3.9 - 5.3) LVPWd: 1.2 cm (0.6 - 1.1) IVSs: 1.4 cm LVIDs: 1.5 cm LVPWs: 1.3 cm LAESV Index (A-L): 24.25 ml/m Ao Diam: 3.3 cm (2.0 - 3.7) AV Cusp: 1.6 cm (1.5 - 2.6) LA Diam: 3.1 cm (2.7 - 3.8) MV EXCURSION: 11.800 mm (> 18.000) MV EF SLOPE: 27 mm/s (70 - 150) EPSS: 0.5 cm MV E Noman: 0.76 m/s MV DecT: 213 ms MV A Noman: 0.79 m/s MV E/A Ratio: 0.97 AV maxP.56 mmHg AV meanP.68 mmHg AR PHT: 621 ms RAP: 5.00 mmHg RVSP: 22.92 mmHg FINDINGS -------- Sinus rhythm. This was a technically adequate study. The left ventricular size is normal. There is mild concentric left ventricular hypertrophy. Overa ll left ventricular systolic function is normal with, an EF between 55 - 60 %. Normal LAP Grade 1 D iastolic Dysfunction. The right ventricle is normal in size. The left atrial size is normal. The right atrial size is normal. Aortic valve is trileaflet and is mildly thickened. There is moderate aortic regurgitation. There is mild aortic stenosis present. Peak/mean gradient across the Aortic Valve is 16.56mmHg / 10.68mm Hg. The mitral valve is normal. There is trace mitral regurgitation. The tricuspid valve appears structurally normal. Trace tricuspid regurgitation present. Right willam tricular systolic pressure is normal at < 35 mmHg. There is no pulmonic regurgitation present. The aortic root size is normal. Normal inferior vena cava with normal inspiratory collapse consistent with estimated right atrial pre ssure of 5 mmHg. There is no pericardial effusion. CONCLUSIONS -------- 1. Sinus rhythm. 2. This was a technically adequate study. 3. The left ventricular size is normal. 4. There is mild concentric left ventricular hypertrophy. 5. Overall left ventricular systolic function is normal with, an EF between 55 - 60 %. 6. Normal LAP Grade 1 Diastolic Dysfunction. 7. The right ventricle is normal in size. 8. The left atrial size is normal. 9. The right atrial size is normal. 10. Aortic valve is trileaflet and is mildly thickened. 11. There is moderate aortic regurgitation. 12. There is mild aortic stenosis present. 13. Peak/mean gradient across the Aortic Valve is 16.56mmHg / 10.68mmHg. 14. The mitral valve is normal. 15. There is trace mitral regurgitation. 16. The tricuspid valve appears structurally normal. 17. Trace tricuspid regurgitation present. 18. Right ventricular systolic pressure is normal at < 35 mmHg. 19. There is no pulmonic regurgitation present. 20. The aortic root size is normal. 21. Normal inferior vena cava with normal inspiratory collapse consistent with estimated right atrial pressure of 5 mmHg. 22. There is no pericardial effusion. DISTRICT COMMERCIAL SUPERINTENDENT: Gerda Larios RDCS
--- NOTE | 2019-07-20 11:34 | P.DS ---
Providers Date of admission: 07/18/19 13:21 Expected date of discharge: 07/20/19 Attending physician: Dorie Bundy MD Consults: 07/18/19 13:21 Consult Physician Urgent Consulting Provider: [facility] Consult Reason/Comments: Chest pain Do you want consulting provider notified?: Yes Primary care physician: Virginia Gay Hospital Course: The patient is a 69-year-old female with a PMH of rheumatoid arthritis, tobacco abuse (quit 1 month ago) and osteoarthritis who presented to the ED with complaints of substernal chest discomfort and associated palpitations. Patient reported that her symptoms started roughly a week prior when she suddenly developed this substernal chest tightness, constant, worsened with chest wall movement along with exertion, with associated palpitations, unable to quantify, and nonradiating. She reported that the discomfort improved somewhat after she received nitroglycerin in the emergency room. She denied associated shortness of breath, diaphoresis, nausea, vomiting, or dizziness. She never had such symptoms in the past. She denied heart-burn, fever, chills, abdominal pain, diarrhea, or cough. She denied tenderness of her chest wall, recent heavy lifting, or increased amount of stress in her life. The patient underwent an extensive evaluation in the emergency room with EKG showing a normal sinus rhythm at [address]/T-wave changes noted. Chest x-ray revealed no acute abnormalities. Laboratory evaluation revealed a troponin of less than 0.012, WBC count of 7.1, hemoglobin 12.9, platelets 231, sodium 140, potassium 3.9, BUN 17, creatinine 0.92. The patient was admitted to the medicine service for further management of chest pain. Cardiology evaluated the patient and recommended obtaining an echocardiogram and noted that the pain is atypical and ACS had been ruled out. The patient's echocardiogram was unremarkable. The patient's blood pressure continued to be high for which she was started on Nor vasc. The patient was seen and evaluated at the bedside on the day of discharge. She reported no additional episodes of chest discomfort or palpitations. She denied shortness of breath, nausea, vomiting, diaphoresis, dizziness, fever, chills, or abdominal pain. She was in good spirits and is eager, and ready for discharge to home. The patient was advised however that if her symptoms change or recur, that she should return to the emergency room. Physical Examination General: Non-toxic, in no acute distress, appears stated age, normal weight HEENT: NC/AT, anicteric sclerae, moist conjunctiva, no lid-lag, PERRLA Cardiovascular: S1/S2 wnl, no murmurs, rubs, or gallops Lungs: Clear to auscultation, normal respiratory effort, no accessory muscle use Abdominal: Soft, non-tender, non-distended, no guarding, rebound, or rigidity Skin: Warm, dry Extremities: No edema or contractures Psychiatric: Alert and oriented to person, place and time, appropriate affect Neuro: CN II-XII grossly intact, Strength 5/5 in all 4 extremities, Speech intact, Sensation to light touch grossly intact throughout Discharge diagnosis: Atypical chest pain, ACS ruled out; hypertension; hyperlipidemia; history of tobacco abuse; rheumatoid arthritis; osteoarthritis A total of 40 minutes of time were spent preparing this complex discharge summary. Patient Condition at Discharge: Stable Plan - Discharge Summary Discharge Rx Participant: No New Discharge Prescriptions: New Atorvastatin [Lipitor] 20 mg PO HS #30 tab amLODIPine [Norvasc] 10 mg PO DAILY #30 tab Continue Omeprazole 20 mg PO DAILY Butalb/Acetaminophen/Caffeine [Fioricet 50-325-40] 1 tab PO Q6H PRN PRN Reason: Headache ALPRAZolam [Xanax] 0.5 mg PO TID PRN PRN Reason: Anxiety Hydroxychloroquine Sulfate [Plaquenil] 200 mg PO DAILY Pilocarpine [Salagen] 5 mg PO DAILY Fluocinolone Acetonide Oil [Fluocinolone Acetonide Oil (Otic)] 4 drops BOTH EARS BID PRN PRN Reason: ITCHINESS Etanercept [Enbrel] 50 mg SQ MO Leflunomide 20 mg PO DAILY Furosemide [Lasix] 20 mg PO DAILY diphenhydrAMINE [Benadryl] 25 mg PO DAILY Cetirizine HCl [Zyrtec] 10 mg PO DAILY Baclofen [Lioresal] 10 mg PO DAILY PRN PRN Reason: Spasms Alendronate Sodium [Fosamax] 70 mg PO WE Polyethylene Glycol 3350 [Miralax] 17 gm PO DAILY PRN PRN Reason: Constipation Varenicline Tartrate [Chantix Continuing Pack] 1 mg PO BID Discontinued Ibuprofen 800 mg PO Q8H PRN PRN Reason: Pain Discharge Medication List ALPRAZolam [Xanax] 0.5 mg PO TID PRN 05/03/18 [History] Butalb/Acetaminophen/Caffeine [Fioricet 50-325-40] 1 tab PO Q6H PRN 05/03/18 [History] Hydroxychloroquine Sulfate [Plaquenil] 200 mg PO DAILY 05/03/18 [History] Omeprazole 20 mg PO DAILY 05/03/18 [History] Alendronate Sodium [Fosamax] 70 mg PO WE 07/18/19 [History] Baclofen [Lioresal] 10 mg PO DAILY PRN 07/18/19 [History] Cetirizine HCl [Zyrtec] 10 mg PO DAILY 07/18/19 [History] Etanercept [Enbrel] 50 mg SQ MO 07/18/19 [History] Fluocinolone Acetonide Oil [Fluocinolone Acetonide Oil (Otic)] 4 drops BOTH EARS BID PRN 07/18/19 [History] Furosemide [Lasix] 20 mg PO DAILY 07/18/19 [History] Leflunomide 20 mg PO DAILY 07/18/19 [History] Pilocarpine [Salagen] 5 mg PO DAILY 07/18/19 [History] Polyethylene Glycol 3350 [Miralax] 17 gm PO DAILY PRN 07/18/19 [History] Varenicline Tartrate [Chantix Continuing Pack] 1 mg PO BID 07/18/19 [History] diphenhydrAMINE [Benadryl] 25 mg PO DAILY 07/18/19 [History] Atorvastatin [Lipitor] 20 mg PO HS #30 tab 07/20/19 [Rx] amLODIPine [Norvasc] 10 mg PO DAILY #30 tab 07/20/19 [Rx] Follow up Appointment(s)/Referral(s): aJvi Barros DO [Primary Care Provider] - 07/25/19 1:00 pm (Thursday) Alfonso Sun MD [STAFF PHYSICIAN] - 07/27/19 4:00 pm (Appointment is with the nurse practioner Enrique. Patient is to bring her insurance card and ID with her and arrive a half hour early to fill out paperwork prior to appointment. ) Patient Instructions/Handouts: Chest Pain (DC) Discharge Disposition: HOME SELF-CARE
--- NOTE | 2019-07-20 14:18 | P.PN ---
Subjective This is Mildred Valdes PA-C dictating a progress note on this patient The patient was interviewed and examined by me as well as by Dr. Sun Case discussed with Dr. Sun and he agrees with the plan of care IMPRESSION / ASSESSMENT: Atypical chest discomfort associated with fluttering in her chest, troponins negative 3, no acute changes on EKG Hypertension, blood pressure control improving but remains elevated progressive dyspnea on exertion for the last week Recent echo showing preserved LV systolic function Moderate aortic regurgitation with mild aortic stenosis Former smoker, [id number] history, quit one year ago Dyslipidemia, ASCVD ten-year risk score 8.3% PLAN: Continue amlodipine 10 mg daily From a cardiology standpoint, the patient may be discharged home on amlodipine 10 mg daily, she will monitor her blood pressure at home and if it remains elevated above 135/80 we will start a second antihypertensive agent Evaluation of dyspnea on exertion with a stress test outpatient HPI Patient is a 69-year-old female with a past medical history of rheumatoid arthritis who presented with complaints of chest discomfort and palpitations. Her blood pressure was found to be elevated and she was started on amlodipine. Blood pressure has improved but is still fluctuating from 120s systolic up to the 170s systolic over 70s to 80s diastolic. No arrhythmias on telemetry. Patient seen and examined resting comfortably in bed. States she is ready to go home. Denies any more palpitations. Continues to have some shortness of breath when she walks to the bathroom. No chest pain. EXAMINATION: Patient is afebrile, pulse in the 60s, respirations 20, blood pressure 154/70, oxygen saturation 95% on room air Patient seen and examined resting in bed, in no acute distress Lungs clear to auscultation bilaterally Heart is regular, systolic murmur audible No elevated JVD Extremities warm no edema REVIEW OF LABS, ECG & MEDICAL DATA Echocardiogram showed EF 55-60%, moderate aortic regurgitation, trileaflet aortic valve, mild aortic stenosis Hemoglobin A1c 5.2 No new CBC or BMP Objective - Vital Signs Vital signs: Vital Signs Temp 97.4 F L 07/20/19 08:00 Pulse 79 07/20/19 08:00 Resp 20 07/20/19 08:00 BP 154/70 07/20/19 08:00 Pulse Ox 95 07/20/19 08:00 Intake & Output 07/19/19 07/20/19 07/20/19 18:59 06:59 18:59 Intake Total 600 240 Output Total 200 Balance 600 240 -200 Weight 71.7 kg Intake: Oral 600 240 Output: Urine 200 Other: # Voids 1 1 1 # Bowel Movements 1 - Labs CBC & Chem 7: 07/18/19 11:24 07/18/19 11:24
== END 2019-07-20 12:00 | disposition home or self-care (01) ==
LOC: EC 11:08 → 3SCARD 13:21
PROVIDERS: ADMIT Internal Medicine; ATTEND Internal Medicine
DX: R07.89 Other chest pain (principal); R00.2 Palpitations; I10 Essential (primary) hypertension; I35.2 Nonrheumatic aortic (valve) stenosis with insufficiency; M06.9 Rheumatoid arthritis, unspecified; E78.5 Hyperlipidemia, unspecified; R51 Headache; M19.90 Unspecified osteoarthritis, unspecified site; Z79.83 Long term (current) use of bisphosphonates; Z79.899 Other long term (current) drug therapy; Z87.891 Personal history of nicotine dependence; Z90.710 Acquired absence of both cervix and uterus; Z96.641 Presence of right artificial hip joint; Z79.891 Long term (current) use of opiate analgesic; Z79.52 Long term (current) use of systemic steroids; Z88.5 Allergy status to narcotic agent; Z88.8 Allergy status to other drugs, medicaments and biological substances; Z90.49 Acquired absence of other specified parts of digestive tract; R06.00 Dyspnea, unspecified
CPT/HCPCS: 96372 ×3; 93005 ×2; 99285; 36415; 93306; 80061; 80053; 84443; 83735; 84484; 85025; 85610; 85730; 83036; 71046; G0378 ×2; J1644 ×3

== ENCOUNTER 2020-04-25 13:47 | Emergency (ER) | payer MEDICARE, OTHER ==
[2020-04-25 13:52] VITALS: RESP 18; TEMP 99.1
[2020-04-25] MEDS ORDERED: PROPARACAINE 0.5% OPHTH DROPS 15 ML BTL LEFT EYE STA (14:09)
[2020-04-25] MEDS ORDERED: FLUORESCEIN STRIPS 1 MG STRIP LEFT EYE ONE (14:10)
--- NOTE | 2020-04-25 15:02 | ED ---
Eye Problem HPI - General Chief complaint: Eye Problems Stated complaint: Eye problem Time Seen by Provider: 04/25/20 14:08 Source: patient Mode of arrival: ambulatory Limitations: no limitations - History of Present Illness Initial comments: Patient is a 70-year-old female presenting to the emergency Department with complaints of left eye irritation that started after she woke up from a nap this afternoon. Patient states when she woke up she felt like she had something in her eye and was rubbing it. Patient states since then her eye has been watering a little bit and still feels irritated. She denies any significant eye pain just the irritation. She denies any double vision, blurry vision. She denies any sick contacts, denies any discharge from her eye except for the watering. She denies a headache, changes in her vision. She denies wearing contacts. She denies any trauma to her eye. She has no further complaints at this time. Upon arrival to the ER her vitals are stable. - Related Data Home Medications Medication Instructions Recorded Confirmed ALPRAZolam [Xanax] 0.5 mg PO TID PRN 05/03/18 07/18/19 Butalb/Acetaminophen/Caffeine 1 tab PO Q6H PRN 05/03/18 07/18/19 [Fioricet 50-325-40] Hydroxychloroquine Sulfate 200 mg PO DAILY 05/03/18 07/18/19 [Plaquenil] Omeprazole 20 mg PO DAILY 05/03/18 07/18/19 Alendronate Sodium [Fosamax] 70 mg PO WE 07/18/19 07/18/19 Baclofen [Lioresal] 10 mg PO DAILY PRN 07/18/19 07/18/19 Cetirizine HCl [Zyrtec] 10 mg PO DAILY 07/18/19 07/18/19 Etanercept [Enbrel] 50 mg SQ MO 07/18/19 07/18/19 Furosemide [Lasix] 20 mg PO DAILY 07/18/19 07/18/19 Leflunomide 20 mg PO DAILY 07/18/19 07/18/19 Pilocarpine [Salagen] 5 mg PO DAILY 07/18/19 07/18/19 Polyethylene Glycol 3350 [Miralax] 17 gm PO DAILY PRN 07/18/19 07/18/19 Varenicline Tartrate [Chantix 1 mg PO BID 07/18/19 07/18/19 Continuing Pack] diphenhydrAMINE [Benadryl] 25 mg PO DAILY 07/18/19 07/18/19 fluocinolone acetonide oiL 4 drops BOTH EARS BID PRN 07/18/19 07/18/19 [Fluocinolone Acetonide Oil (Otic)] Previous Rx's Medication Instructions Recorded Atorvastatin [Lipitor] 20 mg PO HS #30 tab 07/20/19 amLODIPine [Norvasc] 10 mg PO DAILY #30 tab 07/20/19 Polymyxin B-Trimeth Sulf Ophth 1 drops LEFT EYE Q4H 5 Days #1 04/25/20 [Polytrim Opthalmic] bottle Allergies Allergy/AdvReac Type Severity Reaction Status Date / Time codeine Allergy Anaphylaxis Verified 04/25/20 13:52 hydrocodone [From [place]] Allergy Anaphylaxis Verified 04/25/20 13:52 hydromorphone [From Dilaudid] Allergy Anaphylaxis Verified 04/25/20 13:52 morphine Allergy Anaphylaxis Verified 04/25/20 13:52 tramadol Allergy Itching Verified 04/25/20 13:52 Review of Systems ROS Statement: Those systems with pertinent positive or pertinent negative responses have been documented in the HPI. ROS Other: All systems not noted in ROS Statement are negative. Past Medical History Past Medical History: Rheumatoid Arthritis (RA) History of Any Multi-Drug Resistant Organisms: None Reported Past Surgical History: Cholecystectomy, Hysterectomy, Orthopedic Surgery Additional Past Surgical History / Comment(s): right hip replaced Past Anesthesia/Blood Transfusion Reactions: No Reported Reaction Past Psychological History: No Psychological Hx Reported Smoking Status: Never smoker Past Alcohol Use History: None Reported Past Drug Use History: None Reported - Past Family History Mother Family Medical History: Osteoarthritis (OA), Rheumatoid Arthritis (RA) Father History Unknown: Yes Additional Family Medical History / Comment(s): not present General Exam - General Exam Comments Initial Comments: GENERAL: Patient is well-developed and well-nourished. Patient is nontoxic and in no acute distress. HEAD: Atraumatic, normocephalic. EYES: Pupils equal round and reactive to light, extraocular movements intact, sclera anicteric, Eyelids were unremarkable. Left eye is slightly injected, active clear discharge. Bilateral eye pressures range from 18-20. Under fluorescein stain, no abrasion, no foreign bodies are identified. ENT: TMs normal, nares patent, oropharynx clear without exudates. Moist mucous membranes. NECK: Normal range of motion, supple without lymphadenopathy or JVD. LUNGS: Unlabored respirations. Breath sounds clear to auscultation bilaterally and equal. No wheezes rales or rhonchi. HEART: Regular rate and rhythm without murmurs, rubs or gallops. ABDOMEN: Soft, nontender, normoactive bowel sounds. No guarding, no rebound. No masses appreciated. : Deferred MUSCULOSKELETAL: Normal extremities with adequate strength and normal range of motion, no pitting or edema. No clubbing or cyanosis. NEUROLOGICAL: Patient is alert and oriented x 3. Motor and sensory are also intact. Cranial nerves II through XII grossly intact. Symmetrical smile. Normal speech, normal gait. PSYCH: Normal mood, normal affect. SKIN: Warm, Dry, normal turgor, no rashes or lesions noted. Limitations: no limitations Course Vital Signs 04/25/20 13:50 Temperature 99.1 F Pulse Rate 83 Respiratory 18 Rate Blood Pressure 153/79 O2 Sat by Pulse 98 Oximetry Medical Decision Making - Medical Decision Making Patient is a 70-year-old female here with left eye irritation after she woke up from her nap this afternoon. Her vitals are stable. Knisely trauma to her eye. She states it feels irritated and feels like there something in her eye. No changes in vision. Eye pressures are normal. Fluorescein stain does not reveal an abrasion or foreign bodies. I did flush the eye. She did have relief of symptoms with proparacaine drops. I will start patient on an antibiotic drop. She needs to follow up with her eye doctor the next 2 days. Patient is agreement with this plan of care. She is stable for discharge. Return parameters were discussed with the patient she verbalized understanding. Case discussed with Dr. Cool. Disposition Clinical Impression: Irritation of left eye Disposition: HOME SELF-CARE Condition: Stable Instructions (If sedation given, give patient instructions): Eye Pain (ED) Additional Instructions: Please return to the Emergency Department if symptoms worsen or any other concer ns. Exam today is normal. Use antibiotic drops as prescribed. Follow-up with your eye doctor in the next 1-2 days. Prescriptions: Polymyxin B-Trimeth Sulf Ophth [Polytrim Opthalmic] 1 drops LEFT EYE Q4H 5 Days #1 bottle Is patient prescribed a controlled substance at d/c from ED?: No Referrals: Javi Barros DO [Primary Care Provider] - 1-2 days
[2020-04-25 15:24] VITALS: BP 140/87; PULSE 77
== END 2020-04-25 15:23 | disposition home or self-care (01) ==
LOC: EC 13:47
DX: H57.89 Other specified disorders of eye and adnexa (principal); Z79.899 Other long term (current) drug therapy; Z96.661 Presence of right artificial ankle joint
CPT/HCPCS: 99283

== ENCOUNTER → 2020-06-05 | Outpatient (CLI) | payer MEDICARE, OTHER ==
--- NOTE | 2020-06-05 14:35 | XR ---
EXAMINATION TYPE: XR pelvis AP view DATE OF EXAM: 06/05/2020 COMPARISON: None HISTORY: Pain TECHNIQUE: AP pelvis FINDINGS: No acute fractures are evident. Some degenerative changes at sacroiliac joints may be prese nt. Symphysis pubis appears normal. Right femoral prosthesis is present. Left hip appears normal. Nor mal bowel gas is present. Degenerative changes within the lower lumbar spine IMPRESSION: 1. Unremarkable pelvis
--- NOTE | 2020-06-05 14:40 | XR ---
EXAMINATION TYPE: XR lumbar spine 2 or 3V DATE OF EXAM: 06/05/2020 COMPARISON: 05/03/2018 HISTORY: Pain TECHNIQUE: Three-view lumbar spine FINDINGS: There 5 lumbar-type vertebral bodies. Pedicles are intact. Degenerative disc changes are pr esent throughout the lumbar spine. Grade 1 retrolisthesis of L2 on L3 may be present. Vacuum disc phe nomenon may be present L4-5 L5-S1. Findings are stable. IMPRESSION: 1. Stable degenerative disc changes lumbar spine
== END | disposition home or self-care (01) ==
LOC: RADXRMAIN 13:17
PROVIDERS: ATTEND Chiropractor
DX: M51.36 Other intervertebral disc degeneration, lumbar region (principal); M54.41 Lumbago with sciatica, right side
CPT/HCPCS: 72100; 72170

== ENCOUNTER → 2021-02-01 | Outpatient (CLI) | payer MEDICARE, OTHER ==
--- NOTE | 2021-02-01 08:27 | MR ---
EXAMINATION TYPE: MR brain wo con DATE OF EXAM: 02/01/2021 COMPARISON: CT brain May 14, 2011 HISTORY: Optic neuritis Bilateral, Weakness right side TECHNIQUE: Multiplanar, multisequence imaging of the brain and brainstem is performed without IV cont rast. FINDINGS: Diffusion weighted images demonstrate no evidence of a recent infarct or other diffusion abnormality. There is mild ventricular and sulcal prominence. There are multifocal and confluent areas of T2 hyper intensity throughout the white matter bilaterally. Lesions are nonspecific in appearance and distribu tion. At least 60 scattered lesions with some areas more confluent in appearance noted. Midline structures demonstrate normal morphology. The craniocervical junction appears within normal limits. Normal vascular flow voids are present. The visualized sinuses are clear. Globes are intact b ilaterally. Optic nerves appear symmetric and felt within normal limits. IMPRESSION: Mild diffuse age-related cerebral atrophy and moderate to advanced nonspecific white johnathon er changes presumed on the basis of product of chronic small vessel ischemic change in patient of thi s age.
== END | disposition home or self-care (01) ==
LOC: RADMRIMAIN 07:21
PROVIDERS: ATTEND Ophthalmology
DX: H46.9 Unspecified optic neuritis (principal); G31.9 Degenerative disease of nervous system, unspecified
CPT/HCPCS: 70551

== ENCOUNTER → 2021-04-08 | Outpatient (CLI) | payer MEDICARE, OTHER ==
[2021-04-08 13:48] VITALS: BP 117/74; PULSE 76; RESP 18
--- NOTE | 2021-04-08 14:14 | P.PAINCN ---
History of Present Illness - Reason for Consult Consult date: 04/08/21 - History of Present Illness This is an initial consultation visit for this 71 years old female with a chronic history of severe neck pain and headaches started more than 10 years ago but she reported that the intensity of the headache increase since May 2020, and is more prominent on the right side truncate from the base of the skull in the right or to the top of the head, is constant and increases with any neck movement, she denies any motor or sensory deficits but she reported that she had occasional numbness and tingling sensation in the proximal part of the upper extremity, he denies any fever or night sweats which she denies any aura she denies any change in the bowel movement or urination Past Medical History Past Medical History: Rheumatoid Arthritis (RA) Additional Past Medical History / Comment(s): pain on rt side of head History of Any Multi-Drug Resistant Organisms: None Reported Past Surgical History: Cholecystectomy, Hysterectomy, Joint Replacement, Orthopedic Surgery Additional Past Surgical History / Comment(s): right hip replaced, rt shoulder replacement Past Anesthesia/Blood Transfusion Reactions: No Reported Reaction Smoking Status: Former smoker - Past Family History Mother Family Medical History: Osteoarthritis (OA), Rheumatoid Arthritis (RA) Father History Unknown: Yes Additional Family Medical History / Comment(s): not present Medications and Allergies Home Medications Medication Instructions Recorded Confirmed Type ALPRAZolam [Xanax] 0.5 mg PO TID PRN 05/03/18 04/05/21 History Hydroxychloroquine Sulfate 200 mg PO DAILY 05/03/18 04/05/21 History [Plaquenil] Cetirizine HCl [Zyrtec] 10 mg PO DAILY 07/18/19 04/05/21 History Etanercept [Enbrel] 50 mg SQ MO 07/18/19 04/05/21 History Furosemide [Lasix] 20 mg PO DAILY PRN 07/18/19 04/05/21 History Leflunomide 20 mg PO DAILY 07/18/19 04/05/21 History Pilocarpine [Salagen] 5 mg PO DAILY 07/18/19 04/05/21 History Polyethylene Glycol 3350 [Miralax] 17 gm PO DAILY PRN 07/18/19 04/05/21 History fluocinolone acetonide oiL 4 drops BOTH EARS BID PRN 07/18/19 04/05/21 History [fluocinolone acetonide oiL 0.01% (Otic)] Aspirin [Adult Low Dose Aspirin EC] 81 mg PO DAILY 04/05/21 04/05/21 History Pravastatin Sodium [Pravachol] 20 mg PO DAILY 04/05/21 04/05/21 History amLODIPine [Norvasc] 15 mg PO DAILY 04/05/21 04/05/21 History Allergies Allergy/AdvReac Type Severity Reaction Status Date / Time codeine Allergy Anaphylaxis Verified 04/05/21 13:55 hydrocodone [From [facility]] Allergy Anaphylaxis Verified 04/05/21 13:55 hydromorphone [From Dilaudid] Allergy Anaphylaxis Verified 04/05/21 13:55 morphine Allergy Anaphylaxis Verified 04/05/21 13:55 tramadol Allergy Itching Verified 04/05/21 13:55 Physical Exam Vitals: Vital Signs Pulse Resp BP Pulse Ox 04/08/21 13:40 76 18 117/74 96 Physical Examinations : -Constitutiona : Cooperative , not in acute distress . -HEENT : nech : supple , no Lymphadenopathy , normal thyroid size . : eyes : no ptosis , no icterus, no photophobia . - neurologic : Cranial nerve II to XII intact , no focal neurological deffecit . -psychatric : alert , oriented X 3 , appropriate affect , intact judgment and insight . -Lymphatic : no Lymphadenopathy . - musculoskeltal : Cervical Spine motor stregnth in the deltoid and biceps, normal right side , normal Left side motor stregnth biceps and the wrist extensors normal right side ,normal left side . motor stregnth in the triceps muscle . normal Right side , normal Left side deep tendon reflexes normal at the biceps , normal at Brachioradialis , normal at triceps. cervical facet loading test: Positive Bilaterally A tenderness over the occipital nerve bilaterally R>L Lumber spine moter stegnth lower extremities ,thigh and legs 5/5 Right side , 5/5 Left side Results Comments: MRI of the brain reviewed Assessment and Plan Plan: Assessment and plan=1-bilateral occipital nerve neuralgia. 2-cervicogenic headache. 3-cervical spondylosis with cervical facet arthropathy. Patient could benefit from bilateral occipital nerve block. If patient had no benefit from and then we will consider doing MRI of the cervical spine to evaluate and confirm, and maybe patient needs diagnostic medial branch block cervical area Time with Patient: Greater than 30 PQRS Measure Charge Sheet Measure #130: Documentation of Current Meds in Medical Chart: Patient's medications documented in chart Measure #226: Tobacco Use: Screen & Cessation Intervention: Pt not a tobacco user Measure #111: Pneumonia Vaccination: Pneumococcal vaccine administered or previously received Measure #47: Advance Care Plan: Advance care planning discussed & documented, pt chose/unable to give Measure #412: Opioid Treatment Agreement: No documentation of signed opioid treatment agreement Measure #408: Opioid Therapy Follow-up Evaluation: Patient had NO f/u eval minimum every 3 months during opioid therapy Measure #317: Preventitive Care & Scrn High Bld Press & F/U: Normal blood pressure, f/u not required Measure #128: Body Mass Index (BMI) Screening & Follow-up: BMI documented ABOVE normal parameters - f/u documented Measure #131: Pain Assessment & Follow-up: Pain positive & plan documented, Follow-up scheduled Measure #431: Unhealthy Alcohol Use Preventative Care & Scrn: Patient not identified as an unhealthy alcohol user Mode of Arrival: Ambulatory - Pain Location Right Head Non-Pharmacological Interventions: Darkened Room Pharmacological Interventions: PRN Medication PQRS Narrative: Smoking Status Former smoker Blood Pressure 117/74 Pain Intensity [Right Head] 6 Scale Used Numeric (1 - 10) Hx Alcohol Use (MH) No Home Medications: Ambulatory Orders ALPRAZolam [Xanax] 0.5 mg PO TID PRN 05/03/18 Hydroxychloroquine Sulfate [Plaquenil] 200 mg PO DAILY 05/03/18 Cetirizine HCl [Zyrtec] 10 mg PO DAILY 07/18/19 Etanercept [Enbrel] 50 mg SQ MO 07/18/19 Furosemide [Lasix] 20 mg PO DAILY PRN 07/18/19 Leflunomide 20 mg PO DAILY 07/18/19 Pilocarpine [Salagen] 5 mg PO DAILY 07/18/19 Polyethylene Glycol 3350 [Miralax] 17 gm PO DAILY PRN 07/18/19 fluocinolone acetonide oiL [fluocinolone acetonide oiL 0.01% (Otic)] 4 drops BOTH EARS BID PRN 07/18/19 Aspirin [Adult Low Dose Aspirin EC] 81 mg PO DAILY 04/05/21 Pravastatin Sodium [Pravachol] 20 mg PO DAILY 04/05/21 amLODIPine [Norvasc] 15 mg PO DAILY 04/05/21
== END ==
LOC: PNWHC3 12:52
PROVIDERS: ATTEND Specialist
DX: M54.81 Occipital neuralgia (principal); M47.812 Spondylosis without myelopathy or radiculopathy, cervical region; M06.9 Rheumatoid arthritis, unspecified; Z87.891 Personal history of nicotine dependence; Z79.82 Long term (current) use of aspirin; Z88.5 Allergy status to narcotic agent; Z88.6 Allergy status to analgesic agent
CPT/HCPCS: 99211

== ENCOUNTER 2021-05-02 09:18 | Day surgery (SDC) | payer MEDICARE, OTHER ==
[2021-04-30 09:35] VITALS: BMI 29.0
[~2021-05-02 09:18] MED LIST: LACTATED RINGERS 1,000 ML IV SCH
[2021-05-02 09:42] VITALS: TEMP 98.5
[2021-05-02] MEDS ORDERED: DEXAMETHASONE SOD PHOSPHATE 10 MG/ML 1 ML VIAL ONE (10:25)
[2021-05-02] MEDS ORDERED: ROPIVACAINE 5MG/ML 20ML VIAL ONE (10:25)
[2021-05-02] MEDS ORDERED: LIDOCAINE 1% INJ 10MG/ML (20 ML MDV) ONE (10:25)
--- NOTE | 2021-05-02 10:46 | P.PCN ---
Date of Procedure: 05/02/21 Surgeon: Marixa Calderon Pathology: none sent Condition: stable Disposition: PACU Description of Procedure: Pre-operative diagnosis: 1- occipital neuralgia Post Operative Diagnosis 1- occipital neuralgia Procedure: 1- B/L greater and lesser occipital nerve block under ultrasound guidance ANESTHESIA: Local only with Lidocaine 1 % EBL: Minimal PROCEDURE INDICATION: The patient with neck pain and headache secondary to occipital neuralgea unresponsive to conservative treatments. PROCEDURE DESCRIPTION / TECHNIQUE: The patient was seen and identified in the preoperative area. Risks, benefits, complications, and alternatives were discussed with the patient, the patient agreed to proceed with the procedure and signed the consent. IV was started. Vital signs remained stable throughout the procedure. Patient was taken to the OR and time out was completed. The patient was placed in the prone position on the procedure table. . The cervical area and right occiptial area were prepped with chloraprep. Critical pause was taken. Vital signs were closely monitored during the procedure. The the occipital exuberance and superior nuchal line were identified on the right side of the occiput. The greater occipital nerve location was estimated to be medial to the occipital artery which was identified by ultrasound. I used 25-gauge 1-1/2 inch needle to go through the skin and infiltrate 2.5 MLS of a solution made up of 4 MLS Ropivacaine 0.5% +10 mg of decadron. The procedure was repeated in the same manner on the left side. Patient tolerated procedure well.
[2021-05-02 10:53] VITALS: BP 142/85; PULSE 73; RESP 14
== END 2021-05-02 11:45 | disposition home or self-care (01) ==
LOC: ORPAIN 09:18
PROVIDERS: ATTEND Anesthesiology
DX: M54.81 Occipital neuralgia (principal); I48.91 Unspecified atrial fibrillation; M19.90 Unspecified osteoarthritis, unspecified site; Z79.82 Long term (current) use of aspirin
CPT/HCPCS: 64405; J1100; J2001 ×2; J2795

== ENCOUNTER → 2021-05-15 | Outpatient (CLI) | payer MEDICARE, OTHER ==
--- NOTE | 2021-05-15 16:11 | XR ---
EXAMINATION TYPE: XR lumbar spine 2 or 3V DATE OF EXAM: 05/15/2021 Comparison: 06/05/2020 Clinical History: 71-year-old female M54.50 LOW BACK PAIN Findings: Moderate to advanced disc fixation plate degenerative change L4-L5 and L5-S1 along with severe hypert rophic facet arthropathy mid to lower lumbar spine. Moderate degenerative disc disease L2-L3 and mild elsewhere. Degenerative grade 1 retrolisthesis L2-L3 and L3-L4. Changes relatively similar to 06/05/2020. Vertebr al body heights are preserved. Impression: Relatively similar exam. There is moderate to advanced degenerative disc disease lower lumbar spine a long with severe hypertrophic facet arthropathy. Moderate degenerative disc disease L2/L3. Degenerati ve grade 1 retrolisthesis L2-L3 and L3-L4.
== END | disposition home or self-care (01) ==
LOC: RADXRMAIN 14:51
PROVIDERS: ATTEND Psychiatry & Neurology Neurology
DX: M51.36 Other intervertebral disc degeneration, lumbar region (principal); M47.816 Spondylosis without myelopathy or radiculopathy, lumbar region; M43.16 Spondylolisthesis, lumbar region
CPT/HCPCS: 72100

== ENCOUNTER → 2021-05-29 | Outpatient (CLI) | payer MEDICARE, OTHER ==
--- NOTE | 2021-05-29 10:43 | P.PN ---
Subjective Progress Note Date: 05/29/21 This follow-up visit for this 71 years old female with a chronic history of severe neck pain and headache she is diagnosed with occipital neuralgia, and cervical spondylosis, cervicogenic headache, and clearly we have done bilateral greater and lesser occipital nerve block, ultrasound guidance patient reported that her headache improved/gone completely on the left side,(she had 100% improvement of her symptoms on the left side ) and she continued to have headache on the right side, and 30% improvement on the right side. Physical Examinations : -Constitutiona : Cooperative , not in acute distress . -HEENT : nech : supple , no Lymphadenopathy , normal thyroid size . : eyes : no ptosis , no icterus, no photophobia . - neurologic : Cranial nerve II to XII intact , no focal neurological deffecit . -psychatric : alert , oriented X 3 , appropriate affect , intact judgment and insight . -Lymphatic : no Lymphadenopathy . - musculoskeltal : Cervical Spine motor stregnth in the deltoid and biceps, normal right side , normal Left side motor stregnth biceps and the wrist extensors normal right side ,normal left side . motor stregnth in the triceps muscle . normal Right side , normal Left side deep tendon reflexes normal at the biceps , normal at Brachioradialis , normal at triceps. cervical facet loading test: Positive Bilaterally sever tenderness over the occipital nerve on the right side Lumber spine moter stegnth lower extremities ,thigh and legs 5/5 Right side , 5/5 Left side Results Comments: MRI of the brain reviewed Assessment and Plan Plan: Assessment and plan=1-bilateral occipital nerve neuralgia. 2-cervicogenic headache. 3-cervical spondylosis with cervical facet arthropathy. Patient could benefit from bilateral occipital nerve block. Patient had excellent pain relief from symptoms on the left side she had no pain and currently she is having symptoms on the right side she could benefit from repeat right side occipital nerve block with ultrasound guidance DENIZ PQRS Measure Charge Sheet Measure #130: Documentation of Current Meds in Medical Chart: Patient's medications documented in chart Measure #226: Tobacco Use: Screen & Cessation Intervention: Pt not a tobacco user Measure #111: Pneumonia Vaccination: Pneumococcal vaccine administered or previously received Measure #47: Advance Care Plan: Advance care planning discussed & documented, pt chose/unable to give Measure #412: Opioid Treatment Agreement: No documentation of signed opioid treatment agreement Measure #408: Opioid Therapy Follow-up Evaluation: Patient had NO f/u eval minimum every 3 months during opioid therapy Measure #317: Preventitive Care & Scrn High Bld Press & F/U: Normal blood pressure, f/u not required Measure #128: Body Mass Index (BMI) Screening & Follow-up: BMI documented ABOVE normal parameters - f/u documented Measure #131: Pain Assessment & Follow-up: Pain positive & plan documented, Follow-up scheduled Measure #431: Unhealthy Alcohol Use Preventative Care & Scrn: Patient not identified as an unhealthy alcohol user Mode of Arrival: Ambulatory as his follow-up visit for this 71 years old female
[2021-05-29 10:50] VITALS: BP 117/75; PULSE 91; RESP 18; TEMP 97.9
== END ==
LOC: PNWHC3 10:20
PROVIDERS: ATTEND Specialist
DX: M54.81 Occipital neuralgia (principal); M47.812 Spondylosis without myelopathy or radiculopathy, cervical region; Z88.5 Allergy status to narcotic agent; Z88.6 Allergy status to analgesic agent; Z87.891 Personal history of nicotine dependence
CPT/HCPCS: 99211

== ENCOUNTER 2021-06-27 12:15 | Day surgery (SDC) | payer MEDICARE, OTHER ==
[2021-06-25 12:29] VITALS: BMI 28.7
[2021-06-27 12:41] VITALS: TEMP 98.3
[2021-06-27] MEDS ORDERED: ROPIVACAINE 5MG/ML 20ML VIAL ONE (13:09)
[2021-06-27] MEDS ORDERED: TRIAMCINOLONE ACETONIDE 40 MG/ML 1 ML VIAL ONE (13:09)
[2021-06-27] MEDS ORDERED: LACTATED RINGERS 1,000 ML IV SCH (13:15)
--- NOTE | 2021-06-27 13:17 | P.PCN ---
Date of Procedure: 06/27/21 Description of Procedure: PREOPERATIVE DIAGNOSIS: Occipital neuralgia, and headaches POSTOPERATIVE DIAGNOSIS: Occipital neuralgia, and headaches PROCEDURES: 1. Right-sided Greater occipital nerve block SURGEON: Indra Arana ANESTHESIA: IV sedation : None EBL: None. Specimen removed: None PROCEDURE INDICATIONS: This patient with a history of chronic headaches, and occipital neuralgia. Patient tried conservative therapy. Came here for intervention management. Procedure and Findings: The patient was seen and examined and written informed consent was obtained after explaining the risks, benefits and alternative of the procedure to the patient. As per patient request for anxiety IV was started in the preoperative holding area for sedation. The patient was positioned in the sitting position with the head slightly flexed and forehead rested on a pillow. By palpation, the external occipital protuberance and mastoid process were identified and mid point in between was located. The target point for greater occipital nerve was just medial to the occipital artery pulsation. The skin preparation was done with ChloraPrep X2 and sterile technique was observed throughout the procedure. A 25-guage, 1.5 inch needle was used for the procedure. A 25-gauge 1.5 inch needle was placed vertically downward, bony contact was obtained, negative aspiration was confirmed and 8 ml solution was injected. The needle was redirected little medially and laterally in a fanning fashion and addition medication was injected after negative aspiration. The block solution containing 0.5% preservative-free ropivacaine 7 mL +40 MG of Depo-Medrol. The needle was removed, needle puncture sites were cleaned and pressure was applied. The patient tolerated the procedure very well. COMPLICATIONS: None. DISPOSITION / PLANS: The patient was placed in a supine position and transferred to the recovery area in a stable condition for observation and was discharged from the recovery room after meeting discharge criteria. Home discharge instructions given to the patient by the staff. The patient was reexamined prior to discharge. The patient will schedule for follow-up visit with the pain clinic in 4 weeks duration
[2021-06-27 13:22] VITALS: RESP 20
[2021-06-27 13:32] VITALS: BP 134/80; PULSE 76
== END 2021-06-27 13:40 | disposition home or self-care (01) ==
LOC: ORPAIN 12:15
DX: M54.81 Occipital neuralgia (principal)
CPT/HCPCS: 64405; J3301; J2795

== ENCOUNTER → 2021-12-20 | Outpatient (CLI) | payer MEDICARE, OTHER ==
--- NOTE | 2021-12-20 13:40 | NM ---
EXAMINATION TYPE: NM bone 3 phase DATE OF EXAM: 12/20/2021 COMPARISON: NONE HISTORY: M25.551 R Hip Pain Z96.641 PRESENCE OF ARTIFICIAL Triple phase bone scintigraphy was performed following the injection of 23.6 mCi Tc 99m MDP. Immedia te images and 5 hours post injection images acquired. FINDINGS: There is evidence of right hip prosthesis. On the angiographic and blood pool portions of the study t here is no evidence for increased radiotracer accumulation. On the delayed views there is increased a ccumulation noted mild in degree involving the tip of the femoral stem as well as the stem component at the lesser trochanteric region. Loosening is not excluded. Correlate clinically. IMPRESSION: I cannot exclude right femoral prosthetic loosening. Correlate clinically. Infection is felt to be le ss likely.
== END | disposition home or self-care (01) ==
LOC: RADNMMAIN 07:26
PROVIDERS: ATTEND Orthopaedic Surgery
DX: M25.551 Pain in right hip (principal); Z96.641 Presence of right artificial hip joint
CPT/HCPCS: 78315; A9503

== ENCOUNTER 2022-03-21 08:34 | Emergency (ER) | payer MEDICARE, OTHER ==
[2022-03-21 08:50] VITALS: BP 137/79; PULSE 87; RESP 20; TEMP 98.5
--- NOTE | 2022-03-21 09:50 | XR ---
Right foot HISTORY: Trauma and pain 3 views the right foot correlated prior exam plain film 01/24/2010, CT 07/04/2019 There is contour abnormality, lateral angulation of the proximal phalanx of the third digit of the ri ght foot, likely cortical break. No evident dislocation. Bone mineralization is reduced. Old healed f ifth metatarsal fracture is present. There is soft tissue swelling at the metatarsophalangeal joint o f the first digit. Enthesophyte present at the insertion of the Achilles tendon. IMPRESSION: Third digit fracture.
--- NOTE | 2022-03-21 10:00 | ED ---
Lower Extremity Injury HPI - General Chief Complaint: Extremity Injury, Lower Stated Complaint: Foot/toe injury Time Seen by Provider: 03/21/22 08:56 Source: patient, RN notes reviewed Mode of arrival: ambulatory Limitations: no limitations - History of Present Illness Initial Comments: This is a 72-year-old female who presents to the emergency department for right foot pain. Patient states that when she was walking around at home last night, she slammed her foot into the door. Her toes went in opposite directions, and she is having severe pain to the third toe on the right foot. She is unable to take any pain medication other than Tylenol. She is currently using a walking boot. Denies any fevers, chills, sore throat, cough, dyspnea, chest pain, palpitations, abdominal pain, nausea, vomiting, diarrhea, back pain, or headaches. MD Complaint: foot injury Injury: Foot: Right Type of Injury: blunt Place: home - Related Data Home Medications Medication Instructions Recorded Confirmed ALPRAZolam [Xanax] 0.5 mg PO TID PRN 05/03/18 06/25/21 Hydroxychloroquine Sulfate 200 mg PO DAILY 05/03/18 06/25/21 [Plaquenil] Cetirizine HCl [Zyrtec] 10 mg PO DAILY 07/18/19 06/25/21 Etanercept [Enbrel] 50 mg SQ MO 07/18/19 06/25/21 Furosemide [Lasix] 20 mg PO DAILY PRN 07/18/19 06/25/21 Leflunomide 20 mg PO DAILY 07/18/19 06/25/21 Pilocarpine [Salagen] 5 mg PO DAILY 07/18/19 06/25/21 Aspirin [Adult Low Dose Aspirin EC] 81 mg PO DAILY 04/05/21 06/25/21 Pravastatin Sodium [Pravachol] 20 mg PO DAILY 04/05/21 06/25/21 amLODIPine [Norvasc] 15 mg PO DAILY 04/05/21 06/25/21 [place]-3 Fatty Acids/Fish Oil [Fish 1 each PO Q2D 04/30/21 06/25/21 Oil 1,000 mg Softgel] Allergies Allergy/AdvReac Type Severity Reaction Status Date / Time codeine Allergy Anaphylaxis Verified 03/21/22 08:50 hydrocodone [From [place]] Allergy Anaphylaxis Verified 03/21/22 08:50 hydromorphone [From Dilaudid] Allergy Anaphylaxis Verified 03/21/22 08:50 morphine Allergy Anaphylaxis Verified 03/21/22 08:50 tramadol Allergy Itching Verified 03/21/22 08:50 Review of Systems ROS Statement: Those systems with pertinent positive or pertinent negative responses have been documented in the HPI. ROS Other: All systems not noted in ROS Statement are negative. Past Medical History Past Medical History: Hypertension, Rheumatoid Arthritis (RA) Additional Past Medical History / Comment(s): Pain on right side of head. History of Any Multi-Drug Resistant Organisms: None Reported Past Surgical History: Cholecystectomy, Hysterectomy, Joint Replacement, Orthopedic Surgery Additional Past Surgical History / Comment(s): Right hip replacement, right shoulder replacement, COLONOSOCPY, Pain Clinic Procedure. Past Anesthesia/Blood Transfusion Reactions: No Reported Reaction Past Psychological History: No Psychological Hx Reported Smoking Status: Current every day smoker Past Alcohol Use History: None Reported Past Drug Use History: None Reported - Past Family History Mother Family Medical History: Osteoarthritis (OA), Rheumatoid Arthritis (RA) Father History Unknown: Yes Additional Family Medical History / Comment(s): not present General Exam Limitations: no limitations General appearance: alert, in no apparent distress Head exam: Present: atraumatic, normocephalic, normal inspection Respiratory exam: Present: normal lung sounds bilaterally. Absent: respiratory distress, wheezes, rales, rhonchi, stridor Cardiovascular Exam: Present: regular rate, normal rhythm, normal heart sounds. Absent: systolic murmur, diastolic murmur, rubs, gallop, clicks Extremities exam: Present: other (The proximal phalanx of the third digit of the right foot is displaced laterally.) Neurological exam: Present: alert, oriented X3, CN II-XII intact Psychiatric exam: Present: normal affect, normal mood Skin exam: Present: warm, dry, intact, normal color. Absent: rash Course Vital Signs 03/21/22 08:48 Temperature 98.5 F Pulse Rate 87 Respiratory 20 Rate Blood Pressure 137/79 O2 Sat by Pulse 97 Oximetry Procedures - Nerve Block Consent Obtained: verbal consent Local Anesthetic Used: Lidocaine 1% Amount of anesthesia used: 2 Side: right Nerve Blocks: digital Procedure Successful: Yes - Orthopedic Joint Reduction Joint #1 Consent Obtained: verbal consent Side: right Joint Reduction Location: toe Analgesia: digital block Local Anesthetic Used: Lidocaine 1% Amount of Anesthetic Used (mLs): 2 Technique Used: direct manipulation Post-Reduction Neuro Exam: intact Post-Reduction Vascular Exam: intact Post Reduction X-Ray Obtained: No Medical Decision Making - Medical Decision Making This is a 72-year-old female who presents to the emergency department for right toe pain. X-ray of the right foot obtained, revealing a displaced cortical fracture of the right third digit. Digital block was performed and the fracture was reduced. Toes 2 and 3 were judy taped for stabilization. The patient was placed in a postop shoe. Advised she continue to take Tylenol as needed for pain relief and to apply ice for 10-15 minutes every 2-3 hours. Information for orthopedic follow-up provided as well. Return precautions reviewed in depth, the patient is instructed to return to the emergency department with any new, worsening, or concerning symptoms. Patient v erbalized understanding. This case was discussed in detail with the attending ED physician. Presentation, findings, and treatment plan discussed in detail as well. - Radiology Data Radiology results: report reviewed, image reviewed Disposition Clinical Impression: Fracture of third toe, right, closed Disposition: HOME SELF-CARE Instructions (If sedation given, give patient instructions): Toe Fracture (ED), Post Surgical Shoe (ED) Additional Instructions: Return to the emergency department with any new, worsening, or concerning symptoms. Take Tylenol as needed for pain relief. Apply ice for 10-15 minutes every 2-3 hours. Contact orthopedics for a follow up appointment. Is patient prescribed a controlled substance at d/c from ED?: No Referrals: David Esparza MD [Primary Care Provider] - 1-2 days Elli Guzman DO [Doctor of Osteopathic Medicine] - 1-2 days
[2022-03-21] MEDS ORDERED: LIDOCAINE 1% INJ 10MG/ML (20 ML MDV) SQ ONE (10:04)
[2022-03-21] MEDS ORDERED: LIDOCAINE/EPINEPHR/TETRACAINE 5 ML BOTTLE TOPICAL ONE (10:17)
[2022-03-21] MEDS ORDERED: ACETAMINOPHEN TAB 325 MG TAB PO STA (10:18)
== END 2022-03-21 22:25 | disposition home or self-care (01) ==
LOC: EC 08:34
DX: S92.911A Unspecified fracture of right toe(s), initial encounter for closed fracture (principal); I10 Essential (primary) hypertension; F17.200 Nicotine dependence, unspecified, uncomplicated; Z79.899 Other long term (current) drug therapy; Z88.5 Allergy status to narcotic agent; Z88.6 Allergy status to analgesic agent; Y92.009 Unspecified place in unspecified non-institutional (private) residence as the place of occurrence of the external cause; W23.1XXA Caught, crushed, jammed, or pinched between stationary objects, initial encounter; Y93.01 Activity, walking, marching and hiking
CPT/HCPCS: 73630; 99284; 28515; J2001

== ENCOUNTER 2022-03-25 09:37 | Day surgery (SDC) | payer MEDICARE, OTHER ==
[2022-03-25 10:14] VITALS: RESP 16; TEMP 97.6
[2022-03-25] MEDS ORDERED: LIDOCAINE 1% (10MG/ML) FOR IV START INTRADERMA ONE (10:14)
[2022-03-25] MEDS ORDERED: PROPOFOL 10 MG/ML 20 ML VIAL IV ONE (10:21)
[2022-03-25] MEDS ORDERED: LIDOCAINE 2% INJ 20 MG/ML (2 ML VIAL) ONE (10:21)
--- NOTE | 2022-03-25 10:26 | P.GSHP ---
History of Present Illness H&P Date: 03/25/22 Chief Complaint: Rectal bleeding 72-year-old female here today for colonoscopy. Patient has had some recent rectal bleeding. No bowel complaints. Will family history of colon cancer. Last colonoscopy 15-20 years ago. Past Medical History Past Medical History: Hyperlipidemia, Hypertension, Rheumatoid Arthritis (RA) Additional Past Medical History / Comment(s): nerve pain in her back from back surgery. hx of blood clot in leg 30 yrs ago. blood in stool. recent broken 3rd toe to right foot. pt wearing boot on that foot. ( taped to next toe) History of Any Multi-Drug Resistant Organisms: None Reported Past Surgical History: Cholecystectomy, Hysterectomy, Joint Replacement, Orthopedic Surgery Additional Past Surgical History / Comment(s): Right hip replacement, right shoulder replacement, COLONOSOCPY, Pain Clinic Procedure. Past Anesthesia/Blood Transfusion Reactions: No Reported Reaction Smoking Status: Current every day smoker - Past Family History Mother Family Medical History: Osteoarthritis (OA), Rheumatoid Arthritis (RA) Father History Unknown: Yes Additional Family Medical History / Comment(s): not present Medications and Allergies Home Medications Medication Instructions Recorded Confirmed Type ALPRAZolam [Xanax] 0.5 mg PO TID PRN 05/03/18 03/24/22 History Hydroxychloroquine Sulfate 200 mg PO DAILY 05/03/18 03/24/22 History [Plaquenil] Cetirizine HCl [Zyrtec] 10 mg PO DAILY 07/18/19 03/24/22 History Etanercept [Enbrel] 50 mg SQ MO 07/18/19 03/24/22 History Furosemide [Lasix] 20 mg PO DAILY PRN 07/18/19 03/24/22 History Leflunomide 20 mg PO DAILY 07/18/19 03/24/22 History Pilocarpine [Salagen] 5 mg PO DAILY 07/18/19 03/24/22 History Aspirin [Adult Low Dose Aspirin EC] 81 mg PO DAILY 04/05/21 03/24/22 History Pravastatin Sodium [Pravachol] 20 mg PO DAILY 04/05/21 03/24/22 History amLODIPine [Norvasc] 15 mg PO DAILY 04/05/21 03/24/22 History [place]-3 Fatty Acids/Fish Oil [Fish 1 each PO Q2D 04/30/21 03/24/22 History Oil 1,000 mg Softgel] Gabapentin [Neurontin] 300 mg PO BID 03/24/22 03/24/22 History methocarbamoL [Methocarbamol] 500 mg PO BID 03/24/22 03/24/22 History Allergies Allergy/AdvReac Type Severity Reaction Status Date / Time codeine Allergy Anaphylaxis Verified 03/25/22 10:03 hydrocodone [From [place]] Allergy Anaphylaxis Verified 03/25/22 10:03 hydromorphone [From Dilaudid] Allergy Anaphylaxis Verified 03/25/22 10:03 morphine Allergy Anaphylaxis Verified 03/25/22 10:03 tramadol Allergy Itching Verified 03/25/22 10:03 Surgical - Exam Vital Signs Temp Pulse Resp BP Pulse Ox 97.6 F 96 16 152/79 96 03/25/22 10:13 03/25/22 10:13 03/25/22 10:13 03/25/22 10:13 03/25/22 10:13 Physical exam: General: Well-developed, well-nourished HEENT: Normocephalic, sclerae nonicteric Abdomen: Nontender, nondistended Extremities: No edema Neuro: Alert and oriented Assessment and Plan (1) Rectal bleeding Narrative/Plan: Will proceed with colonoscopy Current Visit: Yes Status: Acute Code(s): K62.5 - HEMORRHAGE OF ANUS AND RECTUM SNOMED Code(s): 15290800
--- NOTE | 2022-03-25 10:38 | P.PCN ---
Date of Procedure: 03/25/22 Procedure(s) Performed: PREOPERATIVE DIAGNOSIS: Rectal bleeding POSTOPERATIVE DIAGNOSIS: Rectal polyp, diverticulosis PROCEDURE: Colonoscopy with snare polypectomy ANESTHESIA: MAC SURGEON: Javi López M.D. SPECIMENS: Rectal polyp ENDOSCOPIC PROCEDURE: The patient was placed on the endoscopy table in the left decubitus position. The Olympus colonoscope was inserted into the anus and passed under direct visualization to the base of the cecum. The appendiceal orifice was visualized. From that point the scope was slowly withdrawn inspecting all surfaces carefully. There were no neoplastic inflammatory or polypoid lesions throughout the cecum, ascending, transverse, descending, and sigmoid colon. In the rectum at 12 cm was a pedunculated polyp measuring 1.3 cm. This was removed using the snare with cautery technique. The patient had mild diverticulosis in the left colon. Digital rectal examination was normal. The patient was taken to the recovery room in stable condition per anesthesia guidelines. RECOMMENDATIONS: Resume diet. Await biopsy results.
[2022-03-25 10:51] VITALS: BP 126/64; PULSE 73
== END 2022-03-25 11:00 | disposition home or self-care (01) ==
LOC: ORWHC2ENDO 09:37
PROVIDERS: ATTEND Surgery
DX: D12.8 Benign neoplasm of rectum (principal); K57.30 Diverticulosis of large intestine without perforation or abscess without bleeding; I10 Essential (primary) hypertension; E78.5 Hyperlipidemia, unspecified; M06.9 Rheumatoid arthritis, unspecified; F17.200 Nicotine dependence, unspecified, uncomplicated; Z80.0 Family history of malignant neoplasm of digestive organs; Z90.49 Acquired absence of other specified parts of digestive tract; Z90.710 Acquired absence of both cervix and uterus; Z96.641 Presence of right artificial hip joint; Z96.611 Presence of right artificial shoulder joint; Z87.39 Personal history of other diseases of the musculoskeletal system and connective tissue; Z79.899 Other long term (current) drug therapy; Z79.01 Long term (current) use of anticoagulants; Z79.51 Long term (current) use of inhaled steroids; Z79.82 Long term (current) use of aspirin; Z79.83 Long term (current) use of bisphosphonates; Z79.891 Long term (current) use of opiate analgesic; Z88.5 Allergy status to narcotic agent
CPT/HCPCS: 88305; 45385; J2704; J2001

== ENCOUNTER → 2023-12-16 | Outpatient (CLI) | payer MEDICARE, OTHER ==
--- NOTE | 2023-12-17 09:39 | MR ---
EXAMINATION TYPE: MR thoracic spine wo con DATE OF EXAM: 12/16/2023 12:35 PM COMPARISON: NONE HISTORY: PAIN X2 YEARS Multiplanar MultiSpin echo imaging of the thoracic spine was performed. Exaggerated upper thoracic kyphosis. Disc spaces: Mild scattered degenerative disc disease. Posterior disc bulge at T10-T11 with effacemen t of the ventral thecal sac and borderline central stenosis. The thecal sac is otherwise capacious. Spinal canal: Borderline central stenosis at T10-T11. No intrinsic or extrinsic lesion. Thoracic spinal cord: Thoracic spinal cord is of normal caliber and signal. Paraspinal soft tissues: No evidence for paraspinal mass. No destructive lesions seen. Vertebral segments: No evidence for fracture. Degenerative endplate marrow changes present. IMPRESSION: 1. Degenerative disc disease greatest at T10-T11. There is posterior disc bulging and effacement of t he ventral thecal sac. Borderline central stenosis at this level.
== END | disposition home or self-care (01) ==
LOC: RADMRIMAIN 11:25
PROVIDERS: ATTEND Anesthesiology
DX: M51.14 Intervertebral disc disorders with radiculopathy, thoracic region (principal); M48.04 Spinal stenosis, thoracic region
CPT/HCPCS: 72146

== ENCOUNTER 2024-01-03 08:52 | Emergency (ER) | payer MEDICARE, OTHER ==
--- NOTE | 2024-01-03 09:10 | ED ---
Back Pain HPI - General Chief Complaint: Abdominal Pain Stated Complaint: side pain Time Seen by Provider: 01/03/24 08:58 Source: patient, RN notes reviewed Mode of arrival: wheelchair Limitations: no limitations - History of Present Illness Initial Comments: This is a 73-year-old female who presents to the emergency department for left flank pain. States that it started a week ago. Pain is described as a stabbing sensation. Pain does not wrap around into the abdomen. She had some nausea earlier today but denies any vomiting. She has not measured any fevers but feels like she has had chills. Denies any urinary symptoms, diarrhea, or constipation. She had kidney stones 20 years ago that she had removed and states that this feels similar. - Related Data Home Medications Medication Instructions Recorded Confirmed ALPRAZolam [Xanax] 0.5 mg PO TID PRN 05/03/18 03/24/22 Hydroxychloroquine Sulfate 200 mg PO DAILY 05/03/18 03/24/22 [Plaquenil] Cetirizine HCl [Zyrtec] 10 mg PO DAILY 07/18/19 03/24/22 Etanercept [Enbrel] 50 mg SQ MO 07/18/19 03/24/22 Furosemide [Lasix] 20 mg PO DAILY PRN 07/18/19 03/24/22 Leflunomide 20 mg PO DAILY 07/18/19 03/24/22 Pilocarpine [Salagen] 5 mg PO DAILY 07/18/19 03/24/22 Aspirin [Adult Low Dose Aspirin EC] 81 mg PO DAILY 04/05/21 03/24/22 Pravastatin Sodium [Pravachol] 20 mg PO DAILY 04/05/21 03/24/22 amLODIPine [Norvasc] 15 mg PO DAILY 04/05/21 03/24/22 [place]-3 Fatty Acids/Fish Oil [Fish 1 each PO Q2D 04/30/21 03/24/22 Oil 1,000 mg Softgel] Gabapentin [Neurontin] 300 mg PO BID 03/24/22 03/24/22 methocarbamoL [Methocarbamol] 500 mg PO BID 03/24/22 03/24/22 Previous Rx's Medication Instructions Recorded Lidocaine 5% Patch [Lidoderm 5% 1 patch TOPICAL DAILY PRN #30 patch 01/03/24 Patch] predniSONE 50 mg PO DAILY 5 Days #5 tab 07/07/24 Allergies Allergy/AdvReac Type Severity Reaction Status Date / Time codeine Allergy Anaphylaxis Verified 03/25/22 10:03 hydrocodone [From Fertile] Allergy Anaphylaxis Verified 03/25/22 10:03 hydromorphone [From Dilaudid] Allergy Anaphylaxis Verified 03/25/22 10:03 morphine Allergy Anaphylaxis Verified 03/25/22 10:03 tramadol Allergy Itching Verified 03/25/22 10:03 Review of Systems ROS Statement: Those systems with pertinent positive or pertinent negative responses have been documented in the HPI. ROS Other: All systems not noted in ROS Statement are negative. Past Medical History Past Medical History: Hypertension, Rheumatoid Arthritis (RA) Additional Past Medical History / Comment(s): Pain on right side of head. degeneratic joint disease History of Any Multi-Drug Resistant Organisms: None Reported Past Surgical History: Cholecystectomy, Hysterectomy, Joint Replacement, Orthopedic Surgery Additional Past Surgical History / Comment(s): Right hip replacement, right shoulder replacement, COLONOSOCPY, Pain Clinic Procedure. Past Anesthesia/Blood Transfusion Reactions: No Reported Reaction Past Psychological History: Anxiety Smoking Status: Current every day smoker - Past Family History Mother Family Medical History: Osteoarthritis (OA), Rheumatoid Arthritis (RA) Father History Unknown: Yes Additional Family Medical History / Comment(s): not present General Exam Limitations: no limitations General appearance: alert, in no apparent distress Head exam: Present: atraumatic, normocephalic, normal inspection Respiratory exam: Present: normal lung sounds bilaterally. Absent: respiratory distress, wheezes, rales, rhonchi, stridor Cardiovascular Exam: Present: regular rate, normal rhythm, normal heart sounds. Absent: systolic murmur, diastolic murmur, rubs, gallop, clicks GI/Abdominal exam: Present: soft, normal bowel sounds. Absent: distended, tenderness, guarding, rebound, rigid Back exam: Present: CVA tenderness (L). Absent: CVA tenderness (R) Neurological exam: Present: alert, oriented X3, CN II-XII intact Psychiatric exam: Present: normal affect, normal mood Skin exam: Present: warm, dry, intact, normal color. Absent: rash Course Vital Signs 01/03/24 01/03/24 01/03/24 08:54 11:00 12:01 Temperature 97.6 F 98.1 F 98.0 F Pulse Rate 110 H 78 78 Respiratory 26 H 16 16 Rate Blood Pressure 162/83 150/80 162/79 O2 Sat by Pulse 97 98 98 Oximetry Medical Decision Making - Medical Decision Making This is a 73 year old female who presents to the emergency department for left flank pain. Was pt. sent in by a medical professional or institution? @ -No Did you speak to anyone other than the patient for history? @ -No Did you review nursing and triage notes? @ -Yes, and I agree, it is accurate with regards to the patient's symptoms. Were old charts reviewed? @ -No Differential Diagnosis? @ -Differential Flank Pain: UTI, pyelonephritis, kidney stone, musculoskeletal, pancreatitis, cholecystitis, this is not meant to be an all-inclusive list. EKG interpreted by me (3pts min.)? @ -Not obtained X-rays interpreted by me (1pt min.)? @ -Not obtained CT interpreted by me (1pt min.)? @ -CT scan of the abdomen and pelvis obtained. My interpretation identifies no evidence of a ureteral calculus. U/S interpreted by me (1pt. min.)? @ -Not obtained What testing was considered but not performed? (CT, X-rays, U/S, labs)? Why? @ -None What meds were considered but not given? Why? @ -None Did you discuss the management of the patient with other professionals? @ -No Did you reconcile home meds? @ -No Was smoking cessation discussed for >3mins.? @ -No Was critical care preformed (if so, how long)? @ -No Were there social determinants of health that impacted care today? How? (Homele ssness, low income, unemployed, alcoholism, drug addiction, transportation, low edu. Level, literacy, decrease access to med. care, care home, rehab)? @ -No Was there de-escalation of care discussed even if they declined? (Discuss DNR or withdrawal of care, Hospice)? @ -No What co-morbidities impacted this encounter? (DM, HTN, Smoking, COPD, CAD, Canc er, CVA, Hep., AIDS, mental health diagnosis, sleep apnea, morbid obesity)? @ -HTN Was patient admitted / discharged? @ -Discharged. Lab work demonstrates an elevated lactic acid of 2.5 and was otherwise fairly unremarkable. Renal function is stable when compared with prior. Urinalysis negative for signs of blood or infection. CT scan of the abdomen and pelvis demonstrates no evidence of a ureteral calculus, hydronephrosis, or other acute process. She does have nonspecific findings in the lung bases with a few nodular densities that will need follow-up imaging on an outpatient basis. Symptoms may be musculoskeletal in nature. Her pain was somewhat difficult to control given her allergy to multiple pain medications and her somewhat impaired renal function limiting her ability to take NSAIDs. However, we were able to get it to a tolerable level. She was given a prescription for prednisone and lidocaine patches for potential musculoskeletal component. Advised she take her Flexeril as prescribed. She was also sent home with capsaicin cream to see if that offers any benefit. Advised close follow-up with her primary care provider. Undiagnosed new problem with uncertain prognosis? @ -None Drug Therapy requiring intensive monitoring for toxicity (Heparin, Nitro, Insulin, Cardizem)? @ -None Were any procedures done? @ -None Diagnosis/symptom? @ -Left lower back pain Acute, or Chronic, or Acute on Chronic? @ -Acute Uncomplicated (without systemic symptoms) or Complicated (systemic symptoms)? @ -Uncomplicated Side effects of treatment? @ -None Exacerbation, Progression, or Severe Exacerbation] @ -Not applicable Poses a threat to life or bodily function? @ -No Return precautions reviewed in depth, the patient is instructed to return to the emergency department with any new, worsening, or concerning symptoms. Patient verbalized understanding. This case was discussed in detail with the attending ED physician, Dr. Abernathy. Presentation, findings, and treatment plan discussed in detail as well. - Lab Data Result diagrams: 01/03/24 09:41 01/03/24 09:41 Lab Results 01/03/24 01/03/24 01/03/24 Range/Units 09:41 09:41 09:41 WBC 9.0 (3.8-10.6) k/uL RBC 4.66 (3.80-5.40) m/uL Hgb 14.1 (11.4-16.0) gm/dL Hct 44.1 (34.0-46.0) % MCV 94.7 (80.0-100.0) fL MCH 30.3 (25.0-35.0) pg MCHC 31.9 (31.0-37.0) g/dL RDW 12.9 (11.5-15.5) % Plt Count 189 (150-450) k/uL MPV 8.6 Neutrophils % 69 % Lymphocytes % 21 % Monocytes % 6 % Eosinophils % 1 % Basophils % 1 % Neutrophils # 6.2 (1.3-7.7) k/uL Lymphocytes # 1.9 (1.0-4.8) k/uL Monocytes # 0.5 (0-1.0) k/uL Eosinophils # 0.1 (0-0.7) k/uL Basophils # 0.0 (0-0.2) k/uL Sodium 138 (137-145) mmol/L Potassium 3.6 (3.5-5.1) mmol/L Chloride 109 H (98-107) mmol/L Carbon Dioxide 18 L (22-30) mmol/L Anion Gap 11 mmol/L BUN 17 (7-17) mg/dL Creatinine 1.13 H (0.52-1.04) mg/dL Est GFR (CKD-EPI)AfAm 57 (>60 ml/min/1.73 sqM) Est GFR (CKD-EPI)NonAf 49 (>60 ml/min/1.73 sqM) Glucose 129 H (74-99) mg/dL Lactic Ac Sepsis Rflx Plasma Lactic Acid Kennedy (0.7-2.0) mmol/L Calcium 9.4 (8.4-10.2) mg/dL Total Bilirubin 0.5 (0.2-1.3) mg/dL AST 29 (14-36) U/L ALT 18 (4-34) U/L Alkaline Phosphatase 106 (38-126) U/L Troponin I (0.000-0.034) ng/mL Total Protein 7.9 (6.3-8.2) g/dL Albumin 4.2 (3.5-5.0) g/dL Amylase 58 (30-110) U/L Lipase 104 (23-300) U/L Urine Color Colorless Urine Appearance Clear (Clear) Urine pH 7.0 (5.0-8.0) Ur Specific [place] 1.005 (1.001-1.035) Urine Protein Trace H (Negative) Urine Glucose (UA) Negative (Negative) Urine Ketones Negative (Negative) Urine Blood Negative (Negative) Urine Nitrite Negative (Negative) Urine Bilirubin Negative (Negative) Urine Urobilinogen <2.0 (<2.0) mg/dL Ur Leukocyte Esterase Trace H (Negative) Urine RBC <1 (0-5) /hpf Urine WBC 1 (0-5) /hpf Ur Squamous Epith Cells 2 (0-4) /hpf Urine Bacteria Rare H (None) /hpf 01/03/24 01/03/24 01/03/24 Range/Units 09:41 09:41 10:35 WBC (3.8-10.6) k/uL RBC (3.80-5.40) m/uL Hgb (11.4-16.0) gm/dL Hct (34.0-46.0) % MCV (80.0-100.0) fL MCH (25.0-35.0) pg MCHC (31.0-37.0) g/dL RDW (11.5-15.5) % Plt Count (150-450) k/uL MPV Neutrophils % % Lymphocytes % % Monocytes % % Eosinophils % % Basophils % % Neutrophils # (1.3-7.7) k/uL Lymphocytes # (1.0-4.8) k/uL Monocytes # (0-1.0) k/uL Eosinophils # (0-0.7) k/uL Basophils # (0-0.2) k/uL Sodium (137-145) mmol/L Potassium (3.5-5.1) mmol/L Chloride (98-107) mmol/L Carbon Dioxide (22-30) mmol/L Anion Gap mmol/L BUN (7-17) mg/dL Creatinine (0.52-1.04) mg/dL Est GFR (CKD-EPI)AfAm (>60 ml/min/1.73 sqM) Est GFR (CKD-EPI)NonAf (>60 ml/min/1.73 sqM) Glucose (74-99) mg/dL Lactic Ac Sepsis Rflx Y Plasma Lactic Acid Kennedy 2.5 H* (0.7-2.0) mmol/L Calcium (8.4-10.2) mg/dL Total Bilirubin (0.2-1.3) mg/dL AST (14-36) U/L ALT (4-34) U/L Alkaline Phosphatase (38-126) U/L Troponin I <0.012 (0.000-0.034) ng/mL Total Protein (6.3-8.2) g/dL Albumin (3.5-5.0) g/dL Amylase (30-110) U/L Lipase (23-300) U/L Urine Color Urine Appearance (Clear) Urine pH (5.0-8.0) Ur Specific Roma (1.001-1.035) Urine Protein (Negative) Urine Glucose (UA) (Negative) Urine Ketones (Negative) Urine Blood (Negative) Urine Nitrite (Negative) Urine Bilirubin (Negative) Urine Urobilinogen (<2.0) mg/dL Ur Leukocyte Esterase (Negative) Urine RBC (0-5) /hpf Urine WBC (0-5) /hpf Ur Squamous Epith Cells (0-4) /hpf Urine Bacteria (None) /hpf - Radiology Data Radiology results: report reviewed, image reviewed Disposition Clinical Impression: Left-sided back pain Disposition: HOME SELF-CARE Instructions (If sedation given, give patient instructions): Back Pain (ED) Additional Instructions: Return to the emergency department with any new, worsening, or concerning symptoms. Take the prednisone daily for 5 days. You can take up to 4 g of Tylenol each day as well. You can also try applying the capsaicin cream provided here or the lidocaine patch as prescribed. You can take 1 to 2 tablets of the Flexeril at a time. Try taking this twice a day as prescribed, however be aware that it may make you drowsy. Follow up with your primary care provider in 1-2 days. Prescriptions: Lidocaine 5% Patch [Lidoderm 5% Patch] 1 patch TOPICAL DAILY PRN #30 patch PRN Reason: Pain predniSONE 50 mg PO DAILY 5 Days #5 tab Is patient prescribed a controlled substance at d/c from ED?: No Referrals: David Esparza MD [Primary Care Provider] - 1-2 days Time of Disposition: 11:48
[2024-01-03] MEDS: LIDOCAINE 4% PATCH TOPICAL ONE (09:33)
[2024-01-03] MEDS: ACETAMINOPHEN TAB 500 MG TAB PO STA (09:37)
[2024-01-03] MEDS: SODIUM CHLORIDE 0.9% 1,000 ML IV STA (09:39)
[2024-01-03 10:09] LABS: Basophils % (A) 1 %; Eosinophils # (A) 0.1 k/uL (0-0.7); Eosinophils % (A) 1 %; HCT 44.1 % (34.0-46.0); HGB 14.1 gm/dL (11.4-16.0); Lymphocytes # (A) 1.9 k/uL (1.0-4.8); Lymphocytes % (A) 21 %; MCH 30.3 pg (25.0-35.0); MCHC 31.9 g/dL (31.0-37.0); MCV 94.7 fL (80.0-100.0); Mean Platelet Volume 8.6; Monocytes # (A) 0.5 k/uL (0-1.0); Monocytes % (A) 6 %; Neutrophils # (A) 6.2 k/uL (1.3-7.7); Neutrophils % (A) 69 %; Platelet Count 189 k/uL (150-450); RBC 4.66 m/uL (3.80-5.40); RDW 12.9 % (11.5-15.5)
[2024-01-03 10:12] LABS: Appearance,Urine Clear (Clear); Bacteria,Urine Rare /hpf; Bilirubin,Urine Negative (Negative); Blood,Urine Negative (Negative); Color,Urine Colorless; Glucose,Urine (UA) Negative (Negative); Ketones,Urine Negative (Negative); Leukocyte Esterase,Urine Trace (Negative); Nitrite,Urine Negative (Negative); Protein,Urine Trace (Negative); RBC,Urine <1 /hpf (0-5); Specific Gravity,Urine 1.005 (1.001-1.035); Squamous Epithelial Cell,Urine 2 /hpf (0-4); Urobilinogen,Urine <2.0 mg/dL (<2.0); WBC,Urine 1 /hpf (0-5)
[2024-01-03 10:33] LABS: ALT 18 U/L (4-34); AST 29 U/L (14-36); African American GFR (CKD) 57 (>60 ml/min/1.73 sqM); Albumin 4.2 g/dL (3.5-5.0); Alkaline Phosphatase 106 U/L (38-126); Amylase 58 U/L (30-110); Anion Gap 11 mmol/L; Blood Urea Nitrogen 17 mg/dL (7-17); Calcium 9.4 mg/dL (8.4-10.2); Carbon Dioxide 18 mmol/L (22-30); Chloride 109 mmol/L (98-107); Glucose 129 mg/dL (74-99); Lipase 104 U/L (23-300); Non-African American GFR(CKD) 49 (>60 ml/min/1.73 sqM); Potassium 3.6 mmol/L (3.5-5.1); Sodium 138 mmol/L (137-145); Total Bilirubin 0.5 mg/dL (0.2-1.3); Total Protein 7.9 g/dL (6.3-8.2)
[2024-01-03] MEDS: ORPHENADRINE 30 MG/ML 2 ML VIAL IVP STA (10:40)
[2024-01-03] MEDS: KETOROLAC 15 MG/ML 1 ML VIAL IVP STA (10:41)
--- NOTE | 2024-01-03 10:45 | CT ---
EXAMINATION TYPE: CT abdomen pelvis wo con CT DLP: 389.5 mGycm, Automated exposure control for dose reduction was used. DATE OF EXAM: 01/03/2024 9:26 AM COMPARISON: None. CLINICAL INDICATION:Female, 73 years old with history of Left flank pain; LT flank pain, abdominal pa in, hx renal stones TECHNIQUE: Axial CT of the abdomen and pelvis. Sagittal and coronal reformats were created on a [employer] workstation. Contrast used: mL of , (none if empty) Oral contrast used: without Oral Contrast (none if empty) FINDINGS: LOWER CHEST: Bibasilar mild to moderate scarring and fibrosis. There are a few irregularly shaped foc al nodular densities in the lung bases, for example 7 mm in the right lower lobe and 9 mm in the left lower lobe. Heart is not enlarged. Partially seen calcifications in the region of the mitral and aortic valves. S mall hiatal hernia with mildly prominent adjacent lymph nodes, may be reactive. ABDOMEN LIVER: Unremarkable GALLBLADDER AND BILE DUCTS: The gallbladder is surgically absent. Biliary tree does not appear pathol ogically dilated. PANCREAS: Unremarkable. SPLEEN: Unremarkable. ADRENAL GLANDS: Mildly thickened, may be seen with hyperplasia.. KIDNEYS AND URETERS: No visible renal calculi. Evaluation of the pelvis is limited by artifact from r ight hip hardware however no ureteral calculi or hydronephrosis is seen. Small crescentic calcificati on medial to the right kidney could be related to renal artery aneurysm. PELVIS Evaluation of the pelvis is limited by artifact from right hip hardware BLADDER: Not well evaluated, incompletely distended and an element of wall thickening cannot be exclu ded. REPRODUCTIVE: Uterus appears absent, correlate with history. Ovaries are not seen. Several pelvic ph leboliths are seen. ABDOMEN & PELVIS STOMACH AND BOWEL: Stomach and small bowel are nondistended, no evidence of obstruction. The append ix appears within normal limits. There is some stool and gas seen throughout the colon with no focal acute abnormality shown. There are numerous diverticula seen, mostly in the sigmoid region, without evidence of diverticulitis. PERITONEUM/RETROPERITONEUM: No evidence of pneumoperitoneum or free fluid. VASCULATURE: Moderate atherosclerotic calcifications are present throughout the abdominal aorta and i ts branches. No evidence of aortic aneurysm. LYMPH NODES: No enlarged nodes by CT size criteria. SOFT TISSUE/ABDOMINAL WALL: Unremarkable MUSCULOSKELETAL: No acute osseous abnormalities. Moderate disc degeneration changes are present throu ghout the thoracolumbar spine. S-shaped thoracolumbar scoliosis. Generalized osteopenia. Right hip a rthroplasty in place. IMPRESSION: 1. No evidence of urinary tract calculus or hydronephrosis. 2. No other acute abnormality demonstrated, in the limits of unenhanced exam. Normal appendix. 3. Colonic diverticuli without evidence of diverticulitis. 4. Nonspecific findings in the lung bases with a few nodular densities seen. Recommend complete CT c hest as an outpatient in the near future when clinically appropriate.
[2024-01-03] MEDS: CAPSAICIN 0.025% CREAM 60 GM TUBE TOPICAL ONE (11:45)
[2024-01-03 11:47] VITALS: PULSE 78; RESP 16
[2024-01-03 12:03] VITALS: BP 162/79; TEMP 98
== END 2024-01-03 12:00 | disposition home or self-care (01) ==
LOC: EC 08:52
DX: K57.30 Diverticulosis of large intestine without perforation or abscess without bleeding (principal); M54.50 Low back pain, unspecified; F17.200 Nicotine dependence, unspecified, uncomplicated; Z88.5 Allergy status to narcotic agent; Z88.8 Allergy status to other drugs, medicaments and biological substances; Z90.49 Acquired absence of other specified parts of digestive tract
CPT/HCPCS: 36415; 80053; 82150; 83605; 83690; 84484; 85025; 81001; 74176; 99284; 96374; 96375; 96361; J2360; J1885

== ENCOUNTER → 2024-05-24 | Outpatient (CLI) | payer MEDICARE, OTHER ==
--- NOTE | 2024-05-24 13:28 | US ---
EXAMINATION TYPE: US kidneys/renal and bladder DATE OF EXAM: 05/24/2024 COMPARISON: CT 2023, US 2022 CLINICAL INDICATION: Female, 74 years old with history of N18.31 CKD STAGE 3A; TECHNIQUE: Grayscale imaging of the bilateral kidneys and urinary bladder: FINDINGS: EXAM MEASUREMENTS: Right Kidney: 9.7 x 3.4 x 3.4 cm Left Kidney: 8.7 x 4.0 x 4.2 cm Right Kidney: wnl Left Kidney: lobulated contour, limited by rib shadowing and overlying bowel gas Bladder: not fully distended Bilateral Jets seen: right jet seen, left jet not seen There is no evidence for hydronephrosis at this point in time. Corticomedullary differentiation is m aintained bilaterally. No significant cortical thinning. No nephrolithiasis is seen. No masses are i dentified. The urinary bladder is anechoic. Only the right ureteral jet was identified. IMPRESSION: No hydronephrosis or nephrolithiasis. [facility], , 05/24/2024 1:26 PM
== END | disposition home or self-care (01) ==
LOC: RADUSWWP 12:43
PROVIDERS: ATTEND Internal Medicine Nephrology
DX: N18.31 Chronic kidney disease, stage 3a (principal)
CPT/HCPCS: 76770

== ENCOUNTER → 2024-05-30 | Outpatient (CLI) | payer MEDICARE, OTHER ==
[2024-05-30 15:44] LABS: Basophils # (A) 0.05 X 10*3/uL (0.00-0.10); Basophils % (A) 0.6 %; Eosinophils # (A) 0.21 X 10*3/uL (0.04-0.35); Eosinophils % (A) 2.4 %; HCT 40.4 % (37.2-46.3); HGB 13.2 g/dL (12.0-15.0); Lymphocytes # (A) 2.29 X 10*3/uL (0.90-5.00); Lymphocytes % (A) 25.7 %; MCH 30.2 pg (27.0-32.0); MCHC 32.7 g/dL (32.0-37.0); MCV 92.4 FL (80.0-97.0); Monocytes # (A) 0.74 X 10*3/uL (0.20-1.00); Monocytes % (A) 8.3 %; NRBC Per 100 WBC 0 X 10*3/uL (0.00-0.01); Neutrophils # (A) 5.59 X 10*3/uL (1.80-7.70); Neutrophils % (A) 62.8 %; Platelet Count 203 X 10*3/uL (140-440); RBC 4.37 X 10*6/uL (4.10-5.20); RDW 13.1 % (11.5-14.5)
[2024-05-30 16:25] LABS: % Iron Saturation 22.92 (12.00-45.00); BUN/Creat Ratio 20.36 Ratio (12.00-20.00); Blood Urea Nitrogen 22.4 mg/dL (9.0-27.0); Calcium 9.1 mg/dL (8.7-10.3); Carbon Dioxide 25.9 mmol/L (21.6-31.8); Chloride 104 mmol/L (96-109); Glucose 114 mg/dL (70-110); Iron 66 UG/DL (50-170); Phosphorus 2.9 mg/dL (2.4-5.1); Sodium 140 mmol/L (135-145); Total Iron Binding Capacity 288 UG/DL (228-460); Uric Acid 5.5 mg/dL (2.9-7.7)
[2024-05-30 19:19] LABS: Urine Creatinine 71.8 mg/dL (28.0-217.0)
== END | disposition home or self-care (01) ==
LOC: LABWHC1 10:57
PROVIDERS: ATTEND Internal Medicine Nephrology
DX: N39.0 Urinary tract infection, site not specified (principal); N18.31 Chronic kidney disease, stage 3a; D63.1 Anemia in chronic kidney disease; N25.81 Secondary hyperparathyroidism of renal origin; M10.9 Gout, unspecified; E55.9 Vitamin D deficiency, unspecified; R80.9 Proteinuria, unspecified
CPT/HCPCS: 36415; 80048; 82043; 82306; 82570; 83540; 83550; 83735; 83970; 84100; 84550; 85025; 86334; 86335

== ENCOUNTER → 2024-09-09 | Outpatient (CLI) | payer MEDICARE, OTHER ==
--- NOTE | 2024-09-09 15:23 | MM ---
Reason for Exam: Screening (asymptomatic). Last mammogram was performed 10 year(s) and 5 month(s) ago. Patient History: Menarche at age 15. First Full-Term at age 20. Left ovary removed at age 25. Right ovary removed at age 25. Hysterectomy at age 25. Postmenopausal. 2009, Benign Core Biopsy on the right side. Risk Values: Almaz 5 year model risk: 1.5%. NCI Lifetime model risk: 3.9%. Prior Study Comparison: 12/09/2010 Screening Mammogram, [facility]. 12/21/2012 Bilateral Screening Mammogram, [facility]. 04/25/2014 Bilateral Diagnostic Mammogram, [facility]. Tissue Density: The breasts are heterogeneously dense, which may obscure small masses. Findings: Analyzed By CAD. There is no suspicious group of microcalcifications or new suspicious mass asymmetric distortion left breast at approximately 11:00 4.6 cm from the nipple. Additional views of the left breast are recommended. Benign punctate calcific lesions are seen bilaterally without suspicious cluster. Overall Assessment: Incomplete: need additional imaging evaluation, BI-RAD 0 Management: Diagnostic Mammogram of the left breast. . Patient should continue monthly self-breast exams. A clinical breast exam by your physician is recommended on an annual basis. This exam should not preclude additional follow-up of suspicious palpable abnormalities. Note on Almaz scores and lifetime risk: 1. A Almaz score greater than 3% is considered moderate risk. If this is the case, consider specialist referral to assess eligibility for a risk reducing agent. 2. If overall lifetime risk for the development of breast cancer is 20% or higher, the patient may qualify for future screening with alternating mammogram and breast MRI. [facility], , 09/09/2024 3:20 PM. Electronically signed and approved by: Paulie Buchanan M.D. Radiologis
--- NOTE | 2024-09-10 16:08 | BD ---
EXAMINATION TYPE: Axial Bone Density DATE OF EXAM: 09/09/2024 CLINICAL HISTORY: 74 years old Female. ICD-10 CODE: M81.0 OSTEOPOROSIS , Additional History: Height: 60.5in Weight: 137 lbs FRAX RISK QUESTIONS: History of Fracture in Adulthood: lt forearm fx age 54; rt foot fx age 70; rt shoulder fx age 64 Secondary Osteoporosis: 3. Menopause before 45: total hysterectomy age 25 Rheumatoid Arthritis: yes Current Tobacco Use: yes RISK FACTORS HISTORY OF: History of Wrist Fracture: yes lt wrist age 54 Surgery to Spine/Hip(right): l spine surgery 2024; rt hip replacement age 54 MEDICATIONS: Osteoporosis Medications: Which medication: Fosamax How Lon years EXAM MEASUREMENTS: Bone mineral densitometry was performed using the [employer] System. pt has had l spine surgery in 2024; rt hip replacement 2012; and lt forearm/wrist fx age 54 Bone mineral density about the L hip (g/cm2): 0.691 T Score values are as follows: -----L Neck: -2.4 -----L Total: -2.5 Z Score values are as follows: -----L Neck: -0.6 -----L Total: -0.9 Bone mineral density has: Decreased -3.8% since study of: 08/22/2019 FRAX%s: The graph provided illustrates a 32.4% chance for a major osteoporotic fx and a 14.4% chance for the hips probability for fx in 10 years time. IMPRESSION: Osteopenia (T Score between -2.5 and -1). There is slightly increased risk of fracture and the patient may be considered for treatment. Re-Screen 2-5 years. NOTE: T-SCORE=SD OF THE YOUNG ADULT MEAN. [facility], , 09/10/2024 4:06 PM
== END | disposition home or self-care (01) ==
LOC: RADBDWWP 14:33
PROVIDERS: ATTEND Internal Medicine
DX: Z12.31 Encounter for screening mammogram for malignant neoplasm of breast (principal); M81.0 Age-related osteoporosis without current pathological fracture; R92.333 Mammographic heterogeneous density, bilateral breasts; Z78.0 Asymptomatic menopausal state
CPT/HCPCS: 77063; 77067; 77080

== ENCOUNTER → 2024-09-13 | Outpatient (CLI) | payer MEDICARE, OTHER ==
--- NOTE | 2024-09-13 13:18 | MM ---
Reason for Exam: Additional evaluation requested from abnormal screening. Last screening mammogram was performed less than 1 month ago. Patient History: Menarche at age 15. First Full-Term at age 20. Left ovary removed at age 25. Right ovary removed at age 25. Hysterectomy at age 25. Postmenopausal. 2009, Benign Core Biopsy on the right side. Risk Values: Almaz 5 year model risk: 1.5%. NCI Lifetime model risk: 3.9%. Prior Study Comparison: 12/21/2012 Bilateral Screening Mammogram, [facility]. 04/25/2014 Bilateral Diagnostic Mammogram, [facility]. 09/09/2024 Bilateral MG 3D screening mammo w/cad, [facility]. Tissue Density: Left: The breasts are heterogeneously dense, which may obscure small masses. Findings: Analyzed By CAD. No suspicious mass persists on additional views. Overall Assessment: Negative, BI-RAD 1 Management: Screening Mammogram of both breasts in 1 year. Return to routine follow-up. Results were given to the patient verbally at the time of exam. Patient should continue monthly self-breast exams. A clinical breast exam by your physician is recommended on an annual basis. This exam should not preclude additional follow-up of suspicious palpable abnormalities. Note on Almaz scores and lifetime risk: 1. A Almaz score greater than 3% is considered moderate risk. If this is the case, consider specialist referral to assess eligibility for a risk reducing agent. 2. If overall lifetime risk for the development of breast cancer is 20% or higher, the patient may qualify for future screening with alternating mammogram and breast MRI. [facility], , 09/13/2024 1:16 PM. Electronically signed and approved by: Sandoval Osuna M.D.
== END | disposition home or self-care (01) ==
LOC: RADMAMWWP 12:56
PROVIDERS: ATTEND Internal Medicine
DX: R92.8 Other abnormal and inconclusive findings on diagnostic imaging of breast (principal); R92.333 Mammographic heterogeneous density, bilateral breasts; Z78.0 Asymptomatic menopausal state
CPT/HCPCS: 77061; 77065